=== PATIENT | female | born 1960 | race Two or more races ===

== ENCOUNTER 2024-07-04 09:39 | Outpatient (REF) | payer MEDICAID, SELFPAY ==
--- NOTE | ~2024-07-04 | XR_ITS ---
EXAMINATION: XR LUMBAR SPINE 5 VIEWS CLINICAL INFORMATION: Cervical disc disorder, unspecified, unspecified cervical region M50.90. COMPARISON: None TECHNIQUE: 5 Views of lumbar spine. FINDINGS: Vertebral body heights are maintained. No evidence of acute fracture. Vertebral body alignment is maintained in the lateral view There is minimal anterolisthesis of L5 on S1 on the flexion view. Mild-moderate disc degeneration at L3-4. Facet degeneration the lower lumbar spine. No abnormal soft tissue calcification. XR/XR lumbar spine 4V min IMPRESSION: Lumbar spondylosis. Study is assigned for dictation on August 20, 2024 Electronically signed by: Harley Steen MD 08/20/2024 03:09 PM EST RP
--- NOTE | ~2024-07-04 | XR_ITS ---
EXAMINATION: XR CERVICAL SPINE 7 VIEWS CLINICAL INFORMATION: Cervical disc disorder, unspecified, unspecified cervical region M50.90. COMPARISON: None available TECHNIQUE: 7 views of the cervical spine, inclusive of flexion and extension views, were obtained. FINDINGS: Status post posterior spinal fusion from C3 through C6. Intact hardware. No suspicious perihardware lucency is seen. No acute fracture is identified. There is degenerative changes at the atlantodens articulation. Lung apices are clear. XR/XR cervical spine 4V IMPRESSION: Status post C3-C6 posterior spinal fusion. Intact hardware. Study is assigned for dictation on August 20, 2024 Electronically signed by: Harley Steen MD 08/20/2024 03:15 PM JACQUE
== END 2024-07-04 09:40 | disposition home or self-care (01) ==
LOC: HO.HOSX 09:39
PROVIDERS: PCP Nurse Practitioner Family; Visit Provider Physician Assistant
DX: M50.90 Cervical disc disorder, unspecified, unspecified cervical region (principal)
CPT/HCPCS: 72050; 72110; 99212

== ENCOUNTER 2024-07-04 09:39 | Outpatient (AMB) | payer MEDICAID, SELFPAY ==
--- NOTE | 2024-07-04 10:12 | A.SPINEOV_ITS ---
Intake Visit Reasons: Back pain Intake Note: Ms. Arnel Golden is here today c/o low back pain difficulty walking. Material Control Manager Required: Yes Assessment & Plan Assessment & Plan (1) Cervical disc disorder: Code(s): M50.90 - Cervical disc disorder, unspecified, unspecified cervical region Category: Medical Plan Dear Pawan, Thank you for referring Mrs Holly Golden to our office today. This visit was done with the assistance of a video freelance interpreter/translator [id number]. She is a very nice 63-year-old Kyrgyz-speaking female who presents to the office today for evaluation of 2 separate issues. The 1st is back pain that she has had going on now for more than 10 years. It is aggravated with standing walking but also can bother her at night. She does get pain that goes down her legs, more on the right side when she is standing and walking. She does not recall if she has been taking any medication for it, she takes many medications and can not remember the names of many of them. She did try physical therapy about 5 months ago and they told her that it was not helping so was discontinued. She has seen someone at a pain management center somewhere, she could not recall the name of it but they did give her some kind of what sounds like trigger point injections in 3 parts of her spine. It was not done under x-rays so it does not sound like it was an epidural or anything deeper into the spinal column itself. The 2nd issue she wants to discuss his posterior neck pain. She had a large neck surgery done in [place] many years ago. She can not recall exactly why it was done but it was big neck surgery, it sounds like they fused her neck. Since then she has had issues with posterior neck pain as well as feeling like her hands do not work very well. No tingling numbness shooting down her arms. No severe radicular symptoms. PMH: She is prediabetic, high blood pressure, asthma, depression, arthritis, gastritis, neck surgery, knee surgery and hysterectomy. Denies any issues with her heart, lungs, liver, kidneys. She did have some blood in her urine awhile ago and that was followed up on an it went away apparently. Denies any history of bleeding disorders or blood clots. Social hx: She does not smoke, drink use any recreational drugs Medications: She could not remember her medications Allergies: None Physical exam: She is awake alert oriented no acute distress, Kyrgyz-speaking but understands some Setswana, we did this with it with the help of an freelance interpreter/translator. The patient has full strength of bilateral upper extremities and lower extremities. She does have some pain with hip flexion. She does have hyperreflexia in the upper extremities with Caicedo's sign. She has a large posterior cervical neck incision which extends the whole length of her cervical spine. Imaging review: There is a lumbar MRI and a cervical MRI done at [facility] in November of 2023. The lumbar MRI shows [id number] degenerative changes at L3-4 with some endplate edema at L3-4. There is no significant central or foraminal canal stenosis. There is some edema in the STIR sequence at the L3-4 level. The report suggests there is some issue with the T11 endplate possibly a Schmorl's node or subchondral fracture but I do not appreciate any STIR image hyperintensity on this to suggest that there is a fracture. There is no evidence of misalignment or facet arthropathy in the lumbar spine. The cervical spine shows a large posterior surgical changes from what appears to be C3-C5 with lateral mass screws. I do not see any evidence of cord signal change. There is a disc herniation at C7-T1 on the left which is causing narrowing of the foramen. Impression: 63-year-old female presents today for evaluation 2 separate issues. The 1st is back pain which seems to be at the forefront. She has some changes at L3-4 in the endplates with some edema but no evidence of nerve compression that would explain leg pain. The way she describes the pain in the back seems disproportionate to what I am seeing on the MRI. I would like to get standing flexion-extension x-rays to rule out any occult instability. She is involved with what sounds like a pain management team somewhere in [place]. She is going to get the name for me and I would like them to attempt an L3-4 epidural to see if we can localize this a little bit better and see if that is where the pain is coming from. She will call back and let me know when she has the name of that doctor and where they work. Second issue, is that she has neck pain and had a large posterior cervical decompression with lateral mass screws in [place] many years ago. I suspect she may have had spinal cord compression as she does have baseline hyperreflexia. She does also feel weakness in her hands although I can not detect much on my exam. I am going to get a set of x-rays of her neck as well and I will get an updated MRI just to rule out that nothing has changed since the last image that would cause her to have a myelopathic presentation. Once we have the x-rays the MRI and the name of the pain doctor, I will see the patient back in the office. I would also like her to get the L3- 4 epidural in the meantime as well to see if that would be helpful in making a surgical decision about that L3-4 disc. Once I have all this I will talk with Dr. Ojeda and see if he thinks she is a surgical candidate. Thank you for allowing us to care for your patient. The total time spent with this visit with this patient was 65 minutes reviewing history, physical exam, cervical and lumbar imaging review, and implementation of treatment plan or further diagnostic testing Robert Ojeda MD,PhD [facility] Orders: Orders XR lumbar spine 4V min Today M50.90 - Cervical disc disorder, unspecified, unspecified cervical region XR cervical spine 4V Today M50.90 - Cervical disc disorder, unspecified, unspecified cervical region MR cervical spine wo con Today M50.90 - Cervical disc disorder, unspecified, unspecified cervical region Coding Level of Care Code New Pt Level 5 (16116) Diagnoses Cervical disc disorder M50.90
== END 2024-07-04 11:02 | disposition home or self-care (01) ==
PROVIDERS: PCP Nurse Practitioner Family; Referring Provider Nurse Practitioner Family; Visit Provider Physician Assistant
DX: M50.90 Cervical disc disorder, unspecified, unspecified cervical region (principal)
CPT/HCPCS: 99205

== ENCOUNTER 2024-08-01 09:52 | Outpatient (AMB) | payer MEDICAID, SELFPAY ==
--- NOTE | 2024-08-01 10:35 | HO.SPINEOV ---
Intake Visit Reasons: MRI f/u Intake Note: Ms. Arnel Golden is here today to discuss the results of her MRI. Technician Plant And Maintenance Required: No Assessment & Plan Assessment & Plan (1) Cervical disc disorder: Code(s): M50.90 - Cervical disc disorder, unspecified, unspecified cervical region Category: Medical Plan Technician Plant And Maintenance [id number] used for this visit. Mrs Arnel Golden is following up to review her films. Please see my last note for the details specifics of her issues. I am seeing her today primarily for her cervical spine issues. She has had chronic neck pain ever since her surgery with numbness of her hands. She has also developed bilateral arm pain, left greater than right. It radiates down into her thumb and index finger. The arm pain has been something that she deals with on a daily basis and it does get progressively worse with activity. She has never had any injections on her neck to localize where the symptoms might be coming from. I examined her again in her left hand is slightly weaker than her right but not significantly so. She does have hyperreflexia on the left with Celeste sign and clonus in her left foot. Her cervical spine x-ray shows she has posterior lateral mass instrumentation from C3-C6 with what looks like a wide laminectomy there. She has significant adjacent segment disease at C6-7 with large anterior osteophytes. I do not see any signs of translation with flexion or extension views. The views are somewhat limited by her shoulders. I reviewed her new cervical MRI done at [facility] and this shows that she has herniated disc on the left at C7-T1. There is some impingement on the left side of the cord but no cord signal change. She also has bilateral foraminal narrowing at C6-7 as well. Based on all the imaging, she certainly has reasons to have neck pain and arm pain. I will review her MRI and x-rays with Dr. Ojeda to see what he thinks the best options for her would be. We did briefly discuss the fact that she has a fusion above these 2 degenerative discs and that generally this would require us to perform a fusion on these 2 discs as well which would essentially result in fusion of most of her cervical spine. I did admonished her that I did not expect her neck pain to improve given the amount of instrumentation she would have. I do think there is some room for improvement in the arm pain however if the nerves are decompressed. I will talk with Dr. Ojeda and see what he thinks the best approach here is, and call the patient back with the plan. Total amount of time spent in this visit was 20 minutes in discussion of symptoms, cervical MRI imaging results and subsequent plan of care Robert Ojeda MD,PhD [facility] Coding Level of Care Code Est Pt Level 3 (11679) Diagnoses Cervical disc disorder M50.90
== END 2024-08-01 11:02 | disposition home or self-care (01) ==
PROVIDERS: PCP Nurse Practitioner Family; Visit Provider Physician Assistant
DX: M50.90 Cervical disc disorder, unspecified, unspecified cervical region (principal)
CPT/HCPCS: 99213

== ENCOUNTER → 2024-08-01 09:52 | Outpatient (BNVA) | payer MEDICAID, SELFPAY | PROVIDERS: PCP Nurse Practitioner Family; Visit Provider Physician Assistant | DX: M50.923 Unspecified cervical disc disorder at C6-C7 level (principal); M50.23 Other cervical disc displacement, cervicothoracic region | CPT/HCPCS: 99212 ==

== ENCOUNTER 2024-08-22 14:28 | Outpatient (AMB) | payer MEDICAID, SELFPAY ==
--- NOTE | 2024-08-22 14:48 | HO.SPINEOV ---
Vital Signs 08/22/24 14:51 Height 5 ft 9 in Weight 238 lb BMI 35.1 Intake Visit Reasons: Discuss Surgery Intake Note: Ms. Seals is here today to Discuss Surgery Dental Hygiene Teacher Required: Yes Dental Hygiene Teacher Name: Tablet Allergies No Known Allergies Allergy (Verified 08/22/24 14:52) Physical Exam Vital Signs: BMI result Body Mass Index 35.1 Assessment & Plan Assessment & Plan (1) Cervical disc disorder: Code(s): M50.90 - Cervical disc disorder, unspecified, unspecified cervical region Category: Medical Plan Mrs Arnel Golden came back to the office today. I used ux designer number [id number] for this visit today. Her MRI was done at [facility], x-rays here [place]. Please refer to my previous notes for the specifics of her problem. We discussed 2 options for this patient, the 1st being continuing with conservative management, therapy, injections etc., the 2nd option being surgery, specifically anterior cervical fusion C6-7 and C7-T1. The patient was given risks, benefits etc. and she thinks she would like to proceed with surgery. We have tentatively set a date for 10/15/2024. I reinforced to her that I did not think her neck pain would improve significantly after surgery because this extension of her fusion down to the lower parts of her cervical spine would mean that most of her cervical spine would then be fused, and that she would expect chronic pain. The goal would really be to treat the left arm pain and hand weakness.. Pt was given risk and benefits of surgery including but not limited to infection, hematoma , nerve injury,durotomy, weakness,bowel/bladder injury, persistent pain, vocal hoarseness as well as the option to continue with conservative treatment and patient wishes to proceed with surgery. Pt is aware they should stop their diclofenac, and Ozempic 7 days prior to surgery. All questions were answered to the best of our ability. If there is anything about this patients medical history that we have overlooked or concerns you have about us proceeding with surgery we would appreciate any input you can offer. The patient did provide me with the medication list today and her current list of active medications includes lorazepam, Lasix, omeprazole, benztropine, diclofenac, fluoxetine, atorvastatin, Tylenol, cyclobenzaprine, mirtazapine, bupropion, gabapentin, loratadine, Caplyta, amlodipine, hydroxyzine, prazosin, Singulair, Linzess, Breo, Ventolin, Ozempic Total amount of time spent in this visit was 20 minutes in discussion of symptoms, cervical MRI imaging results and subsequent plan of care Robert Ojeda MD,PhD [facility] Coding Level of Care Code Est Pt Level 3 (83689) Diagnoses Cervical disc disorder M50.90
[2024-08-22 14:51] VITALS: BMI 35.1
== END 2024-08-22 15:27 | disposition home or self-care (01) ==
PROVIDERS: PCP Nurse Practitioner Family; Visit Provider Physician Assistant
DX: M50.90 Cervical disc disorder, unspecified, unspecified cervical region (principal)
CPT/HCPCS: 99213

== ENCOUNTER → 2024-08-22 14:28 | Outpatient (BNVA) | payer MEDICAID, SELFPAY | PROVIDERS: PCP Nurse Practitioner Family; Visit Provider Physician Assistant | DX: M50.90 Cervical disc disorder, unspecified, unspecified cervical region (principal) | CPT/HCPCS: 99212 ==

== ENCOUNTER 2024-10-15 06:30 | Day surgery (SDC) | payer MEDICAID, SELFPAY ==
--- NOTE | 2024-10-07 10:55 | P.CONAN_ITS ---
Documented by User: Alexsandra Elliott NP 10/14/24 10:21 HPI - Anesthesia Eval Consult details Narrative: 63yo F for C6-7, C7-T1 Anterior Cervical Discectomy with Fusion Anesthesia Pre-Procedure Meds Is the patient on any of the following meds?: GLP1/DPP4 PMFSH Active Problems Active Problems: All Active Problems Cervical disc disorder (Acute) Past Medical History Medical History (Updated 10/07/24 @ 10:32 by Marissa Weber RN) Back pain Arthritis Difficulty swallowing Prediabetes GERD (gastroesophageal reflux disease) Hyperkalemia Migraine Schizoaffective disorder, bipolar type Generalized anxiety disorder Depression Numbness Weakness Sleep apnea Asthma Elevated cholesterol HTN (hypertension) Surgical History Surgical History (Updated 10/07/24 @ 10:34 by Marissa Weber RN) Hx of shoulder surgery Hx of cervical spine surgery Hx of hysterectomy History of esophagogastroduodenoscopy (EGD) H/O colonoscopy Social History Social History Are you a primary skin care specialist to a significant other at home: No Do you presently have visiting nurse or other home services: 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 If so, by whom?: No Are you DNR?: No Advance Directives: No Advance Directives Information Provided: Yes Advance Directives on File: No Recently lost weight without trying: No Eating poorly because of decreased appetite: No Nutrition Risks: No Nutritional Risk Patient : No : No Poor oral hygiene: Yes (full upper denture) Meds Allergies Allergy/AdvReac Type Severity Reaction Status Date / Time No Known Allergies Allergy Verified 08/22/24 14:52 Home Medications ?Medication ?Instructions ?Recorded ?Confirmed ?Last Taken ?Type acetaminophen 500 mg tablet 500 mg PO Q6H PRN Pain 10/07/24 10/07/24 10/14/24 History albuterol sulfate 90 mcg/actuation 2 puff inhalation QID PRN 10/07/24 10/07/24 10/14/24 History aerosol inhaler (Ventolin HFA) Shortness Of Breath Or Wheezing aluminum-mag hydroxide-simethicone 15 ml PO TID PRN Abdominal 10/07/24 10/07/24 10/14/24 History 200 mg-200 mg-20 mg/5 mL oral susp Discomfort amlodipine 5 mg tablet 5 mg PO DAILY 10/07/24 10/07/24 10/14/24 History atorvastatin 40 mg tablet 40 mg PO DAILY 10/07/24 10/07/24 10/14/24 History benztropine 0.5 mg tablet 0.5 mg PO BID 10/07/24 10/07/24 10/14/24 History bupropion HCl 300 mg 24 hr tablet, 300 mg PO QAM 10/07/24 10/07/24 10/14/24 History extended release (Wellbutrin XL) cyclobenzaprine 5 mg tablet 5 mg PO TID PRN muscle spasm 10/07/24 10/07/2410/14 History diclofenac sodium 1 % topical gel 2 g topical TID 10/07/24 10/07/24 10/02/24 History diclofenac sodium 75 mg 75 mg PO BID 10/07/24 10/07/24 10/02/24 History tablet,delayed release fluoxetine 40 mg capsule 80 mg PO QAM 10/07/24 10/07/24 10/14/24 History fluticasone furoate 200 1 inh inhalation DAILY 10/07/24 10/07/24 10/14/24 History mcg-vilanterol 25 mcg/dose inhalation powder (Breo Ellipta) furosemide 20 mg tablet 20 mg PO DAILY 10/07/24 10/07/24 10/14/24 History gabapentin 300 mg capsule 600 mg PO TID 10/07/24 10/07/24 10/14/24 History hydroxyzine pamoate 50 mg capsule 50 mg PO TID PRN Anxiety 10/07/24 10/07/24 10/14/24 History lidocaine 4 % topical gel 1 appl topical BID 10/07/24 10/07/24 10/02/24 History linaclotide 145 mcg capsule 145 mcg PO DAILY 10/07/24 10/07/24 10/13/24 History (Linzess) loratadine 10 mg tablet 10 mg PO DAILY allergies 10/07/24 10/07/24 10/14/24 History lorazepam 0.5 mg tablet (Ativan) 0.5 mg PO BID PRN Anxiety 10/07/24 10/07/24 10/14/24 History lumateperone 42 mg capsule 42 mg PO BEDTIME 10/07/24 10/07/24 10/14/24 History (Caplyta) mirtazapine 15 mg tablet 45 mg PO BEDTIME 10/07/24 10/07/24 10/14/24 History montelukast 10 mg tablet 10 mg PO BEDTIME asthma 10/07/24 10/07/24 10/14/24 History omeprazole 40 mg capsule,delayed 40 mg PO DAILY 10/07/24 10/07/24 10/14/24 History release prazosin 1 mg capsule 1 mg PO BEDTIME 10/07/24 10/07/24 10/14/24 History semaglutide 1 mg/dose (4 mg/3 mL) 1 mg subcut QWEEK 10/07/24 10/07/24 10/01/24 History subcutaneous pen injector (Ozempic) ziprasidone HCl 40 mg capsule 40 mg PO BID 10/07/24 10/07/24 10/14/24 History (Snow) Exam Pertinent Lab Results Pertinent Lab Results: Lab results : Results? 05/07/2024 14:41 EDT ? ? ?WBC ? 9.8 k/mm3 ? RBC ? 4.75 m/mm3 ? Hgb ? 13.5 Gm/dL ? Hct ? 41.7 % ? MCV ? 87.8 femtoliters ? MCH ? 28.4 pg ?MCHC ?32.4 g/dL ?L? Platelet Count ?261 k/mm3 ? Sodium ?141 mmol/L ? Potassium ? 4.3 mmol/L ? Chloride ?104 mmol/L ? Bicarbonate Level ? 25 mmol/L ? Anion Gap ? 12 ? Glucose Level ? 94 mg/dL ? BUN ? 11 mg/dL ? Creatinine-Blood ?0.84 mg/dL ? TSH ? 1.62 uIU/mL ? Narrative Narrative: EKG 04/2024 [id number] Ventricular Rate: 59 BPM Atrial Rate: 59 BPM P-R Interval: 180 ms QRS Duration: 96 ms Q-T Interval: 462 ms QTC Calculation(Bazett): 457 ms P Madison: 39 degrees R Madison: 44 degrees T Madison: 37 degrees Sinus bradycardia Otherwise normal ECG When compared with ECG of 23-NOV-2023 12:46, No significant change was found Confirmed by Carlos Lehman ([id number]) on 05/08/2024 7:13:18 AM Assessment and Plan Assessment Anesthesia Assessment: Chart Reviewed Documented by User: Ritu Jha MD 10/15/24 08:11 [facility] Past Medical History Medical History (Updated 10/07/24 @ 10:32 by Marissa Weber RN) Back pain Arthritis Difficulty swallowing Prediabetes GERD (gastroesophageal reflux disease) Hyperkalemia Migraine Schizoaffective disorder, bipolar type Generalized anxiety disorder Depression Numbness Weakness Sleep apnea Asthma Elevated cholesterol HTN (hypertension) Family History Family history of problems with anesthesia: No Surgical History Surgical History (Updated 10/07/24 @ 10:34 by Marissa Weber RN) Hx of shoulder surgery Hx of cervical spine surgery Hx of hysterectomy History of esophagogastroduodenoscopy (EGD) H/O colonoscopy History of Problems with Anesthesia: No Social History Social History Are you a primary skin care specialist to a significant other at home: No Do you presently have visiting nurse or other home services: 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 If so, by whom?: No Are you DNR?: No Advance Directives: No Advance Directives Information Provided: Yes Advance Directives on File: No Recently lost weight without trying: No Eating poorly because of decreased appetite: No Nutrition Risks: No Nutritional Risk Patient : No : No Poor oral hygiene: Yes (full upper denture) Meds Allergies Allergy/AdvReac Type Severity Reaction Status Date / Time No Known Allergies Allergy Verified 08/22/24 14:52 Home Medications ?Medication ?Instructions ?Recorded ?Confirmed ?Last Taken ?Type acetaminophen 500 mg tablet 500 mg PO Q6H PRN Pain 10/07/24 10/07/24 10/14/24 History albuterol sulfate 90 mcg/actuation 2 puff inhalation QID PRN 10/07/24 10/07/24 10/14/24 History aerosol inhaler (Ventolin HFA) Shortness Of Breath Or Wheezing aluminum-mag hydroxide-simethicone 15 ml PO TID PRN Abdominal 10/07/24 10/07/24 10/14/24 History 200 mg-200 mg-20 mg/5 mL oral susp Discomfort amlodipine 5 mg tablet 5 mg PO DAILY 10/07/24 10/07/24 10/14/24 History atorvastatin 40 mg tablet 40 mg PO DAILY 10/07/24 10/07/24 10/14/24 History benztropine 0.5 mg tablet 0.5 mg PO BID 10/07/24 10/07/24 10/14/24 History bupropion HCl 300 mg 24 hr tablet, 300 mg PO QAM 10/07/24 10/07/24 10/14/24 History extended release (Wellbutrin XL) cyclobenzaprine 5 mg tablet 5 mg PO TID PRN muscle spasm 10/07/24 10/07/24 10/14/24 History diclofenac sodium 1 % topical gel 2 g topical TID 10/07/24 10/07/24 10/02/24 History diclofenac sodium 75 mg 75 mg PO BID 10/07/24 10/07/24 10/02/24 History tablet,delayed release fluoxetine 40 mg capsule 80 mg PO QAM 10/07/24 10/07/24 10/14/24 History fluticasone furoate 200 1 inh inhalation DAILY 10/07/24 10/07/24 10/14/24 History mcg-vilanterol 25 mcg/dose inhalation powder (Breo Ellipta) furosemide 20 mg tablet 20 mg PO DAILY 10/07/24 10/07/24 10/14/24 History gabapentin 300 mg capsule 600 mg PO TID 10/07/24 10/07/24 10/14/24 History hydroxyzine pamoate 50 mg capsule 50 mg PO TID PRN Anxiety 10/07/24 10/07/24 10/14/24 History lidocaine 4 % topical gel 1 appl topical BID 10/07/24 10/07/24 10/02/24 History linaclotide 145 mcg capsule 145 mcg PO DAILY 10/07/24 10/07/24 10/13/24 History (Linzess) loratadine 10 mg tablet 10 mg PO DAILY allergies 10/07/24 10/07/24 10/14/24 History lorazepam 0.5 mg tablet (Ativan) 0.5 mg PO BID PRN Anxiety 10/07/24 10/07/24 10/14/24 History lumateperone 42 mg capsule 42 mg PO BEDTIME 10/07/24 10/07/24 10/14/24 History (Caplyta) mirtazapine 15 mg tablet 45 mg PO BEDTIME 10/07/24 10/07/24 10/14/24 History montelukast 10 mg tablet 10 mg PO BEDTIME asthma 10/07/24 10/07/24 10/14/24 History omeprazole 40 mg capsule,delayed 40 mg PO DAILY 10/07/24 10/07/24 10/14/24 History release prazosin 1 mg capsule 1 mg PO BEDTIME 10/07/24 10/07/24 10/14/24 History semaglutide 1 mg/dose (4 mg/3 mL) 1 mg subcut QWEEK 10/07/24 10/07/24 10/01/24 History subcutaneous pen injector (Ozempic) ziprasidone HCl 40 mg capsule 40 mg PO BID 10/07/24 10/07/24 10/14/24 History (Snow) Exam Airway Mallampati Class: II TM Dist: >3cm Neck ROM: Full Denture: Upper Heart: rrr Lungs: cta Assessment and Plan Assessment Anesthesia Assessment: Anesthesia Plan Discussed Final Anesthetic Review Family History of Problems with Anesthesia: No History of Problems with Anesthesia: No NPO: Yes ASA Class: III Final Preanesthetic Review: No Changes in Pt Med Stat, Meds/Allgs Chart Reviewed and Consent Obtained/Reviewed Patient Risk: Intermediate Procedure Risk: Intermediate Anesthetic Plan Anesthetic Plan: GA Disposition: Standard PACU
[2024-10-07 11:04] VITALS: BMI 32.9
[2024-10-07 11:10] VITALS: BP 133/71; PULSE 67; RESP 18; O2SAT 95
[2024-10-15] VITALS (8 sets, daily range): BP systolic 110–142; BP diastolic 65–76; PULSE 64–71; RESP 16–18; TEMP 36.4–36.9; O2SAT 95–100; BMI 32.6
--- NOTE | ~2024-10-15 | FL_ITS ---
EXAMINATION: FL GUIDANCE ONLY HISTORY: c6-t1 ACDF COMPARISON: Correlation is made with plain films of the cervical spine dated 07/04/2024. TECHNIQUE: Fluoroscopy time: 5 seconds. Cumulative Dose: 1.4384 mGy. DAP: 0.4478 mGym2 Images: 2. FINDINGS: Images demonstrate placement of disc prostheses at the C6-7 and C7-T1 levels. The patient is status post posterior fusion of C3-C6. FL/FL guidance in OR IMPRESSION: Fluoroscopy during procedure. Please see procedure report for additional information. Electronically signed by: Francesco Edge MD 10/16/2024 08:57 AM [facility]
--- NOTE | 2024-10-15 07:05 | MHC.SHP ---
Pre-Procedural Eval Section A - 24 Hr Update-Section A only Date of Service: 10/15/24 Section B - Complete if H&P > 30 days Chief Complaint: Cervical disc disorder, unspecified Allergies: Allergies Allergy/AdvReac Type Severity Reaction Status Date / Time No Known Allergies Allergy Verified 08/22/24 14:52 Review of Systems Sugical H&P ROS: Negative: Constitution, Cardiovascular, Respiratory, Neurological, Psychiatric, Hem-Onc, Allergic/Immunologic, Gastrointestinal, Genitourinary, Musculoskeletal, Integumentary, Endocrine and Eyes/Ears/Nose/Throat Exam Surgical H&P Exam: Not Evaluated: HEENT, Not Evaluated: Heart, Not Evaluated: Lungs, Not Evaluated: Extremities, Not Evaluated: Abdomen, Not Evaluated: Skin and Not Evaluated: Neurological Exam Comment: The patient is awake, alert, in no acute distress. Proposed surgical incision site is clean, dry, with no signs of recent trauma. Plan Diagnosis/Plan: Unchanged I have reviewed the history and physical and performed a pertinent physical examination on my patient. No changes have occurred unless specified. plan remains the same, C6-7, C7-T1 ACDF. Time Spent With Patient Time: Total time managing care of this patient today __7__ minutes.
[2024-10-15] MEDS: methocarbamoL 750 MG TABLET PO (07:06)
[2024-10-15] MEDS: Lactated Ringers 1,000 ML 100 ML IVCONT (07:06)
[2024-10-15] MEDS: Gabapentin 300 MG CAPSULE PO (07:06)
--- NOTE | 2024-10-15 08:51 | PC.NURSE ---
pt received one liter of fluids in preop voided x1
[2024-10-15] MEDS: ceFAZolin Sodium/Dextrose,Iso 2 GM/50 ML PIGGYBACK IV (10:30)
--- NOTE | 2024-10-15 12:12 | P.OP_ITS ---
Operative Note Operative Note Date of Service: 10/15/24 Narrative: Preoperative Diagnosis: Myeloradiculopathy Procedure: C6-7, C7-T1 Anterior discectomy, arthrodesis and implantation cage ; C6-T1 anterior instrumentation ; local autograft; microscope Informed Consent was obtained for this operation. I have explained the nature, purpose and benefits of the operation. I have discussed the risks and benefit of the operation including possible complications or adverse events with patie nt/family. Alternative(s) were discussed with the patient with their relative benefits and risks as well as the consequences of not accepting the operation were included in obtaining consent. Surgeon: JERRY SANTO MD, PHD Procedure Assisted By: CYNDI Lam Description of Procedure: This patient underwent a posterior decompression and fusion C3-C6 and another institution. She presented with neck pain and bilateral hand numbness. MRI shows a disc herniation C7-T1 producing significant spinal cord compression. She was offered an anterior diskectomy and fusion was level. Due to the fact that the patient is already fused from C3-C6 and now needs a fusion from C7-T1 we can not leave the C6-7 disc alone as this will fail and produce symptoms. Therefore the C6-7 level is added to the fusion. The procedure complications were explained. The patient was consented. The patient was brought to the operating room and endotracheally intubated. The patient was put in supine position with slight extension of the neck. Prep and drape was done followed by timeout. A mid cervical incision was made followed by opening of the platysma. The prevertebral fascia was reached following the natural planes while the physician registered dental assistant provided manual retraction. The prevertebral fascia was opened to expose the disc space. A spinal needle was placed in the disk space to confirm the correct level with xray. The longus colli muscles were released bilaterally and a self retaining retractor was inserted. Two [place] pins were placed in the C7 and T1 vertebral bodies and distraction was give over the interspace. The discectomy was completed toward the posterior annulus of the disc. The microscope was brought in. The remainder of the discectomy was completed. The posterior ligament was opened and resected to expose the underlying dura. A large disc fragment was removed from the dura centrally on the left side. Osteophytes were resected from the body of C7 and T1 to further decompress the underlying spinal cord and saved for autograft. Bilateral foraminotomies were done. The endplates were prepared after which a 6 mm cage filled with autograft was inserted into the disc space. A separate attached plate was locked down with 2 x 14 mm screws as anterior instrumentation. Then attention was turned to the C6-7 level. Severe disc degeneration was present. A diskectomy was done towards the posterior longitudinal ligament. The posterior longitudinal ligament was opened after which large osteophytes were resected from the body of C6-7 to decompress the underlying spinal cord. Bilateral foraminotomies were done. The endplates were prepared after which a 6 mm cage was inserted filled with autograft. Separate attached plate was locked down with 2 x 14 mm screws as anterior instrumentation. Final x-rays in AP and lateral projection showed a satisfactory position of the implant implants and anterior instrumentation. The physician registered dental assistant took over. The [place] pin was removed. Hemostasis was done. He closed the incision in 2 layers with a 3-0 Vicryl. Steri-Strips used to approximate incision. An OpSite with Tegaderm was used to cover the incision. All sponge and needle counts were correct. Patient was extubated and transported in stable is to recovery room. Anesthesia: General Estimated Blood Loss (ml): 30 mL Duration of Surgery: 1 hour 30 minutes Postoperative Plan: Discharge home Complications: None
--- NOTE | 2024-10-15 12:18 | P.DS_ITS ---
DS: Providers Provider Date of Service: 10/15/24 Date of discharge: 10/15/24 Primary care physician: Unknown Physician DS: Summary Time Attestation Discharge Coordination Time (in mins): 14 Quality: Safe Use of Opioids Does Pt have an Active Cancer Diagnosis on the Problem List?: No Quality: Stroke Does the patient have a stroke diagnosis?: No Physical Exam Vital Signs: Vital Signs: Last Vital Signs Temp 98.5 F 10/15/24 07:29 Pulse 68 10/15/24 07:29 Resp 18 10/15/24 07:29 BP 115/76 10/15/24 07:29 Pulse Ox 96 10/15/24 07:29 O2 Del Method Room Air 10/15/24 07:29 BMI result Body Mass Index 32.6 Discharge Plan Discharge Patient Disposition: Home, Self-Care Referrals: Physician,Unknown J [Primary Care Provider] - 1 Week Discharge Medications: New oxycodone 5 mg tablet 5 mg PO Q6H PRN (Reason: pain (scale score 7-10)) Qty: 30 0RF Rx Instructions: Partial Fill upon patient request. Continued fluoxetine 40 mg capsule 80 mg PO QAM atorvastatin 40 mg tablet 40 mg PO DAILY benztropine 0.5 mg tablet 0.5 mg PO BID prazosin 1 mg capsule 1 mg PO BEDTIME hydroxyzine pamoate 50 mg capsule 50 mg PO TID PRN (Reason: Anxiety) amlodipine 5 mg tablet 5 mg PO DAILY omeprazole 40 mg capsule,delayed release(DR/EC) 40 mg PO DAILY lorazepam [Ativan] 0.5 mg tablet 0.5 mg PO BID PRN (Reason: Anxiety) gabapentin 300 mg capsule 600 mg PO TID montelukast 10 mg tablet 10 mg PO BEDTIME furosemide 20 mg tablet 20 mg PO DAILY mirtazapine 15 mg tablet 45 mg PO BEDTIME loratadine 10 mg tablet 10 mg PO DAILY cyclobenzaprine 5 mg tablet 5 mg PO TID PRN (Reason: muscle spasm) bupropion HCl [Wellbutrin XL] 300 mg tablet extended release 24 hr 300 mg PO QAM diclofenac sodium 1 % Gel 2 g TOPICAL TID Rx Instructions: apply to single elbow, wrist or hand; for hand includes palm/fingers/back of hand Linzess 145 mcg capsule 145 mcg PO DAILY Caplyta 42 mg capsule 42 mg PO BEDTIME acetaminophen 500 mg tablet 500 mg PO Q6H PRN (Reason: Pain) albuterol sulfate [Ventolin HFA] 90 mcg/actuation HFA aerosol inhaler 2 puff inhalation QID PRN (Reason: Shortness Of Breath Or Wheezing) alum-mag hydroxide-simeth 200-200-20 mg/5 mL Suspension 15 ml PO TID PRN (Reason: Abdominal Discomfort) Rx Instructions: administer between meals and at bedtime diclofenac sodium 75 mg Tablet,Delayed Release (Dr/Ec) 75 mg PO BID ziprasidone HCl [Geodon] 40 mg capsule 40 mg PO BID lidocaine 4 % Gel 1 appl TOPICAL BID fluticasone furoate-vilanterol [Breo Ellipta] 200-25 mcg/dose Blister With Device 1 inh INHALATION DAILY Ozempic 1 mg/dose (4 mg/3 mL) pen injector 1 mg subcut QWEEK Patient Comments: patient takes injection every Discharge Orders: Discharge Order (Routine); Ordered 10/15/24 Ordered By: Akira Quispe Diet: Advance to usual diet Activity on Discharge: As tolerated Activity Restrictions/Additional Instructions: After your spinal surgery we ask you to observe the following restrictions/guidelines: Activity: It is normal to feel some discomfort as you increase your activity, but that will improve with time. We ask you avoid heavy lifting or acitivities that cause pain. As a general rule, 8lbs is a safe limit for lifting right after surgery. Walk as much as you feel comfortable but not to exhaustion. You will feel extra tired the first few days after surgery. Stay well hydrated. It is OK to walk up and down stairs You may return to driving when you are off narcotics (such as vicodin, oxycodone, dilaudid, etc), and you are back to normal functional capacity. If you have any concerns please check with office before driving. Return to work is specific to each patient and each surgery, so please speak with your doctor/PA at first follow up. Please bring paperwork such as FMLA at that time if you need it filled out. Medications: We recommend you take 1,000mg Tylenol every 8 hours for the first few weeks after surgery, if you do not have any liver issues and can tolerate this medication. Do not exceed 4,000mg daily. We will give you a short supply of narcotics after surgery (usually one weeks worth). If you need more please call the office but do not use more than prescribed. You will need to give our office 48 hours notice if you need narcotics refilled and we do not fill narcotics on weekends or evenings. If you are on a narcotic, it is a good idea to take a stool softener such as colace or senna to avoid constipation If you take blood thinner such as aspirin, Plavix, Coumadin, Effient, Eliquis etc for conditions such as Afib, DVT, Pulmonary embolus, coronary disease, stents etc please speak with your surgeon about specific details as to when you can resume these medications. You can resume NSAIDs on post op day 1 (eg: Motrin, Naproxen, etc). Follow up: Please call the office, , after surgery to arrange a 3 week follow up for wound check. Wound Care: You may remove your dressing on the first day after surgery. ?You may ?leave open to air. Please do not remove the steri strips underneath. they will fall off on their own in one week. IT IS NORMAL FOR THE WOUND TO OOZE OR BE BLOODY FOR A FEW DAYS AFTER SURGERY. ?IF THIS HAPPENS JUST PLACE NEW DRESSING OVER IT TO AVOID STAINING CLOTHES. You may shower on post op day # 1 We ask that you do not let the water soak the wound. If it does get wet, just towel dry lightly. Please do not scrub your incision or place any type of chemical/ointment on the wound. No tub baths, pools or jacuzzis for one month. If you have any leaking or redness from your wound, or fevers, please call the office. Print Language: [place]
--- NOTE | 2024-10-15 14:15 | PC.NURSE ---
PATIENT SSO, DIRECTOR REHABILITATION PROGRAM AT SIDE. PATIENT REPORTING CHEST PAIN (BURNING) IN MID STERNAL AREA. ANESTHESIOLOGIST ASSESSED AND STATED PAIN RADIATING FROM INSERTION SITE. THIS RN ALSO SENT AT NOTE TO DR. VANEGAS.
--- NOTE | 2024-10-15 14:38 | PC.NURSE ---
THIS RN CALLED 'S OFFICE AND EXPLAINED THE BURNING CHEST PAIN. DR. SANTO STATED A SCREW TO THE BONE AREA COULD BE CAUSING THAT PAIN AND THAT SHE WAS OKAY TO GO HOME. PEST LOCATOR RECALLED TO EXPLAIN TO PATIENT.
== END 2024-10-15 14:47 | disposition home or self-care (01) ==
PROVIDERS: Visit Provider Neurological Surgery
PROC: (CPT 22551; principal; 2024-10-15 09:00)
DX: M50.023 Cervical disc disorder at C6-C7 level with myelopathy (principal); M50.03 Cervical disc disorder with myelopathy, cervicothoracic region; R73.03 Prediabetes; I10 Essential (primary) hypertension; E78.00 Pure hypercholesterolemia, unspecified; J45.909 Unspecified asthma, uncomplicated; F25.0 Schizoaffective disorder, bipolar type; F41.1 Generalized anxiety disorder; G47.33 Obstructive sleep apnea (adult) (pediatric); Z79.51 Long term (current) use of inhaled steroids; Z79.899 Other long term (current) drug therapy; Z79.85 Long-term (current) use of injectable non-insulin antidiabetic drugs; Z99.89 Dependence on other enabling machines and devices
CPT/HCPCS: 22551; 22552; 22853; 20936; 22845; C1713; C1889; J0131; J0690; J1100; J2003; J2250; J2405; J2704; J3010

== ENCOUNTER → 2024-10-15 06:30 | Outpatient (BNV) | payer MEDICAID, SELFPAY | PROVIDERS: Visit Provider Neurological Surgery | DX: M50.023 Cervical disc disorder at C6-C7 level with myelopathy (principal) | CPT/HCPCS: 20936; 22551; 22552; 22845; 22853; 99499 ==

== ENCOUNTER 2024-10-31 22:28 | Emergency (ER) | payer MEDICAID, SELFPAY ==
--- NOTE | ~2024-10-31 | XR_ITS ---
CLINICAL HISTORY: CP 1 view chest x-ray Comparison: None Findings: Lungs are clear without acute infiltrates. No pneumothorax. Heart size normal. No acute bony abnormalities. Cervical fusion or ADR. Impression: No acute processes This document has been electronically signed by: Mike Gaitan MD on 10/31/2024 23:37:16
[2024-10-31 22:30] VITALS: BP 113/77; PULSE 62; O2SAT 97; BMI 32.5
[2024-10-31 22:31] VITALS: BP 124/64; PULSE 65; RESP 18; TEMP 36.8; O2SAT 97
--- NOTE | 2024-10-31 22:40 | ED.GENADULT ---
HPI - General Adult General Chief complaint: Back Pain/Injury Stated complaint: neurosurgeon consult expect /neck pain Source: patient and EMS Mode of arrival: EMS Limitations: no limitations and other History of Present Illness ED Provider: Dr. Aicha Suh HPI narrative: Patient comes to the emergency room via ambulance from [facility]. Our previous ED provider accepts the transfer. Patient presented to the ER at [facility] complaining of ongoing postoperative neck, shoulder, and upper extremity pain. Patient states that on October 15 she had a neurosurgical intervention done at [facility] with Dr. Ojeda. Patient has no neurological deficits. An MRI was done at [facility], which demonstrated new soft tissue material in the intervertebral space it a C6-C7 and C7-T1 extending into the ventral epidural space and along the posterior aspect of the C7 vertebral body which could represent evolving hematoma. However, disc bulges with extruded disc material along the posterior margin of C7 could have similar appearance. There is severe cranial stenosis at C6-C7, posterior to the C7 vertebral body and moderate to severe canal stenosis at C7-T1. The provider at [facility] got in touch with the attending neurosurgeon Dr. Ball, who discussed the patient with Dr. Lorenzana from [facility]. They both decided that it would be best to transfer the patient to [facility]. Related Data Home Medications ?Medication ?Instructions ?Recorded ?Confirmed acetaminophen 500 mg tablet 500 mg PO Q6H PRN Pain 10/07/24 10/07/24 albuterol sulfate 90 mcg/actuation 2 puff inhalation QID PRN 10/07/24 10/07/24 aerosol inhaler (Ventolin HFA) Shortness Of Breath Or Wheezing aluminum-mag hydroxide-simethicone 15 ml PO TID PRN Abdominal 10/07/24 10/07/24 200 mg-200 mg-20 mg/5 mL oral susp Discomfort amlodipine 5 mg tablet 5 mg PO DAILY 10/07/24 10/07/24 atorvastatin 40 mg tablet 40 mg PO DAILY 10/07/24 10/07/24 benztropine 0.5 mg tablet 0.5 mg PO BID 10/07/24 10/07/24 bupropion HCl 300 mg 24 hr tablet, 300 mg PO QAM 10/07/24 10/07/24 extended release (Wellbutrin XL) cyclobenzaprine 5 mg tablet 5 mg PO TID PRN muscle spasm 10/07/24 10/07/24 diclofenac sodium 1 % topical gel 2 g topical TID 10/07/24 10/07/24 diclofenac sodium 75 mg 75 mg PO BID 10/07/24 10/07/24 tablet,delayed release fluoxetine 40 mg capsule 80 mg PO QAM 10/07/24 10/07/24 fluticasone furoate 200 1 inh inhalation DAILY 10/07/24 10/07/24 mcg-vilanterol 25 mcg/dose inhalation powder (Breo Ellipta) furosemide 20 mg tablet 20 mg PO DAILY 10/07/24 10/07/24 gabapentin 300 mg capsule 600 mg PO TID 10/07/24 10/07/24 hydroxyzine pamoate 50 mg capsule 50 mg PO TID PRN Anxiety 10/07/24 10/07/24 lidocaine 4 % topical gel 1 appl topical BID 10/07/24 10/07/24 linaclotide 145 mcg capsule 145 mcg PO DAILY 10/07/24 10/07/24 (Linzess) loratadine 10 mg tablet 10 mg PO DAILY allergies 10/07/24 10/07/24 lorazepam 0.5 mg tablet (Ativan) 0.5 mg PO BID PRN Anxiety 10/07/24 10/07/24 lumateperone 42 mg capsule 42 mg PO BEDTIME 10/07/24 10/07/24 (Caplyta) mirtazapine 15 mg tablet 45 mg PO BEDTIME 10/07/24 10/07/24 montelukast 10 mg tablet 10 mg PO BEDTIME asthma 10/07/24 10/07/24 omeprazole 40 mg capsule,delayed 40 mg PO DAILY 10/07/24 10/07/24 release prazosin 1 mg capsule 1 mg PO BEDTIME 10/07/24 10/07/24 semaglutide 1 mg/dose (4 mg/3 mL) 1 mg subcut QWEEK 10/07/24 10/07/24 subcutaneous pen injector (Ozempic) ziprasidone HCl 40 mg capsule 40 mg PO BID 10/07/24 10/07/24 (Geodon) Previous Rx's ?Medication ?Instructions ?Recorded oxycodone 5 mg tablet 5 mg PO Q6H PRN pain (scale score 10/15/24 7-10) #30 tabs Allergies Allergy/AdvReac Type Severity Reaction Status Date / Time No Known Allergies Allergy Verified 10/31/24 22:42 Review of Systems Review of Systems: Constitutional : No Weight loss, No Fever, No Chills, No Night Sweats, No Fatigue, No Malaise ENT/Mouth : No Hearing loss, No Ear Pain, No Nasal Congestion, No Sinus Pain, No Hoarseness, No sore throat, No Rhinorrhea, No Swallowing Difficulty Eyes: No Eye Pain, No Swelling, No Redness, No Foreign Body, No Discharge, No Vision Changes Cardiovascular : No Chest Pain, No SOB, No Dyspnea on Exertion, No Orthopnea, No Edema, No Palpitations Respiratory : No Cough, No Sputum, No Wheezing, No Smoke Exposure, No Dyspnea Gastrointestinal : No Nausea, No Vomiting, No Diarrhea, No Constipation, No abdominal Pain, No Hematochezia, No Melena Genitourinary : no irregular bleeding, No Dysuria, No Urinary Frequency, No Hematuria, No Urinary Incontinence, No Urgency, No Flank Pain, No Urinary Flow Changes, No Hesitancy Musculoskeletal : Complaining of posterior back pain, shoulder pain bilateral, upper extremity pain. Skin : No Skin Lesions, No rash Neuro : No Weakness, No Numbness, No Paresthesias, No Loss of Consciousness, No Dizziness, No Headache Psych : No Anxiety/Panic, No Depression, No SI/HI/AH/VH, No Social Issues, Heme/Lymph: No Bruising, No Bleeding,No Lymphadenopathy Endocrine : No Polyuria, No Polydipsia, No Temperature Intolerance PMFSH Past Medical History Medical History Back pain Arthritis Difficulty swallowing Prediabetes GERD (gastroesophageal reflux disease) Hyperkalemia Migraine Schizoaffective disorder, bipolar type Generalized anxiety disorder Depression Numbness Weakness Sleep apnea Asthma Elevated cholesterol HTN (hypertension) Surgical History (Updated 10/07/24 @ 10:34 by Marissa Weber RN) Hx of shoulder surgery Hx of cervical spine surgery Hx of hysterectomy History of esophagogastroduodenoscopy (EGD) H/O colonoscopy Social History Social History Are you a primary home care specialist to a significant other at home: No Do you presently have visiting nurse or other home services: Yes ([employer] OFFICE [employer]IST[employer]) Patient Tobacco Use Status: Never used Tobacco Smoked in Last 30 Days: No Use of substances other than those prescribed or required for medical reasons: No Advance Directives: No Advance Directives Information Provided: Yes Do you have a plan to hurt others: No Plan Patient : No Physical Exam ED Vital Signs: Vital Signs - 24 hr 10/31/24 22:31 Temperature 98.3 F Pulse Rate 65 Respiratory Rate 18 Blood Pressure 124/64 Pulse Oximetry 97 Oxygen Delivery Method Room Air BMI result Body Mass Index 32.5 Const Other: Appearance: Alert. Oriented X3. Seems uncomfortable Eyes: Pupils equal, round and reactive to light. ENT: Pharynx normal. Neck: Normal inspection. Neck supple. No lymph nodes noted. No crepitus CVS: Normal heart rate and rhythm. Pulses normal. Normal S1 and S2 Respiratory: No respiratory distress. Breath sounds normal. No Wheezing. No rales Abdomen: Soft and nontender. No rigidity. No distention. Skin: Skin warm and dry. Normal skin color. Normal skin turgor. Extremities: No lower extremity edema. No Lacerations. No Rash Neuro: Oriented X 3. No motor deficit. No sensory deficit. Moving all extremities. No slurred speech. CN 2 through 12 grossly intact Psych: calm, cooperative, normal affect Course Course Course Narrative: Patient arrived here in the emergency room, we got in touch with CYNDI Quispe from Neurosurgery. They will come and evaluate the patient in the morning, admission not necessary at this time. Patient states that for several days, she has been having chest pain. We do not have any current labs available. We will do our on labs, get troponins, EKG. In the meantime, neurosurgery recommends IV dexamethasone 4 mg q.6 hours. First dose ordered 23:00 Medications Administered Generic Name Dose Route Start Last Admin Trade Name Freq PRN Reason Stop Dose Admin Dexamethasone Sodium Phosphate 4 mg 10/31/24 23:00 10/31/24 23:35 Dexamethasone Sod Phosphate 4 Mg/Ml Vial IVPUSH 4 mg Q6H THEODORE Administration Medical Decision Making Medical Decision Making [facility] Narrative: My interpretation of EKG: Normal sinus rhythm, heart rate 57, no ST segment depression or elevation, no T-wave inversion, QTC 453 Hematology and chemistry did not show any significant acute abnormality. Troponin negative Chest x-ray: No acute abnormality Patient is under physician observation started at 00:20 Neurosurgery evaluation pending at 08:00 Consult Healthcare Provider Management of the patient was discussed with: [employer] Lab Data [facility] Lab Attestation statement: I reviewed the patient's lab results. 10/31/24 22:59 10/31/24 23:00 Labs: Lab Results 10/31/24 10/31/24 Range/Units 22:59 23:00 WBC 7.3 (4.8-10.8) X10*3/uL RBC 4.51 (4.20-5.50) X10*6/uL Hgb 13.0 (12.0-16.0) g/dl Hct 39.5 (37.0-47.0) % MCV 87.6 (80.0-98.0) fL MCH 28.8 (27.0-33.0) pg MCHC 32.9 (31.0-35.0) g/dl RDW 15.1 (11.0-16.0) % Plt Count 271 (160-400) X10*3/uL MPV 10.3 (9.4-12.3) fL Immature Gran % (Auto) 0.7 H (0.0-0.4) % Neut % (Auto) 65.7 (45-73) % Lymph % (Auto) 21.9 (20-40) % [place] % (Auto) 7.3 (2-11) % Eos % (Auto) 3.6 (0-4) % Baso % (Auto) 0.8 (0-2) % Lymph # (Auto) 1.6 (1.2-4.9) X10*3/uL [place] # (Auto) 0.5 (0.1-1.2) X10*3/uL Eos # (Auto) 0.3 (0.0-0.4) X10*3/uL Baso # (Auto) 0.1 (0.0-0.2) X10*3/uL Abs Immat Gran (auto) 0.05 H (0.00-0.03) X10*3/uL Absolute Neuts (auto) 4.8 (2.0-8.3) x10*3/uL Absolute Nucleated RBC 0.000 (0.0-0.012) X10*3/uL Nucleated RBC % (auto) 0.0 (0.0-0.2) /100WBC Hold Blue Top SEE NOTE Sodium 141 (135-145) mmol/L Potassium 4.0 (3.3-5.1) mmol/L Chloride 108 (96-108) mmol/L Carbon Dioxide 26 (22-29) mmol/L Anion Gap 11 L (12-20) BUN 7 L (9-16) mg/dL Creatinine 0.81 (0.5-1.4) mg/dL Estim Creat Clear Calc 90.5 Estimated GFR > 60 Random Glucose 84 (60-115) mg/dL Calcium 8.7 (8.4-10.2) mg/dL Total Bilirubin 0.5 (0.0-1.0) mg/dL Direct Bilirubin 0.2 (0.0-0.5) mg/dL AST 25 (5-31) U/L ALT 38 H (0-31) U/L Alkaline Phosphatase 104 (39-117) U/L Troponin I High Sens < 2.7 (<3.5-17.0) ng/L Total Protein 6.2 L (6.5-8.0) g/dL Albumin 3.5 (3.5-5.0) g/dL Independent Interpretation I performed an independent interpretation of an: Plain X-Ray Radiology Impression Discussion of test interpretation with radiology: I have reviewed the radiologist's reading. Radiologist Impression: Lungs are clear without acute infiltrates. No pneumothorax. Heart size normal. No acute bony abnormalities. Cervical fusion or ADR. Impression: No acute processes Discharge Plan Discharge Clinical Impression: Atypical chest pain, Neck pain with history of cervical spinal surgery Patient Disposition: Still a Patient Prescriptions: No Action fluoxetine 40 mg capsule 80 mg PO QAM atorvastatin 40 mg tablet 40 mg PO DAILY benztropine 0.5 mg tablet 0.5 mg PO BID prazosin 1 mg capsule 1 mg PO BEDTIME hydroxyzine pamoate 50 mg capsule 50 mg PO TID PRN (Reason: Anxiety) amlodipine 5 mg tablet 5 mg PO DAILY omeprazole 40 mg capsule,delayed release(DR/EC) 40 mg PO DAILY lorazepam [Ativan] 0.5 mg tablet 0.5 mg PO BID PRN (Reason: Anxiety) gabapentin 300 mg capsule 600 mg PO TID montelukast 10 mg tablet 10 mg PO BEDTIME furosemide 20 mg tablet 20 mg PO DAILY mirtazapine 15 mg tablet 45 mg PO BEDTIME loratadine 10 mg tablet 10 mg PO DAILY cyclobenzaprine 5 mg tablet 5 mg PO TID PRN (Reason: muscle spasm) bupropion HCl [Wellbutrin XL] 300 mg tablet extended release 24 hr 300 mg PO QAM diclofenac sodium 1 % Gel 2 g TOPICAL TID Rx Instructions: apply to single elbow, wrist or hand; for hand includes palm/fingers/back of hand Linzess 145 mcg capsule 145 mcg PO DAILY Caplyta 42 mg capsule 42 mg PO BEDTIME acetaminophen 500 mg tablet 500 mg PO Q6H PRN (Reason: Pain) albuterol sulfate [Ventolin HFA] 90 mcg/actuation HFA aerosol inhaler 2 puff inhalation QID PRN (Reason: Shortness Of Breath Or Wheezing) alum-mag hydroxide-simeth 200-200-20 mg/5 mL Suspension 15 ml PO TID PRN (Reason: Abdominal Discomfort) Rx Instructions: administer between meals and at bedtime diclofenac sodium 75 mg Tablet,Delayed Release (Dr/Ec) 75 mg PO BID ziprasidone HCl [Geodon] 40 mg capsule 40 mg PO BID lidocaine 4 % Gel 1 appl TOPICAL BID fluticasone furoate-vilanterol [Breo Ellipta] 200-25 mcg/dose Blister With Device 1 inh INHALATION DAILY Ozempic 1 mg/dose (4 mg/3 mL) pen injector 1 mg subcut QWEEK Patient Comments: patient takes injection every oxycodone 5 mg tablet 5 mg PO Q6H PRN (Reason: pain (scale score 7-10)) Qty: 30 0RF Rx Instructions: Partial Fill upon patient request. Print Language: Greenlandic
--- NOTE | 2024-10-31 22:49 | ECG_ITS ---
Test Reason : CHEST PAIN Blood Pressure : */* mmHG Vent. Rate : 57 BPM Atrial Rate : 57 BPM P-R Int : 160 ms QRS Dur : 90 ms QT Int : 466 ms P-R-T Axes : 39 47 31 degrees QTcB Int : 453 ms Sinus bradycardia Otherwise normal ECG No previous ECGs available Referred By: Aicha Suh Electronically Signed By: VIANCA AMBROCIO
[2024-10-31 23:09] LABS: Basophils Absolute Auto 0.1 X10*3/uL (0.0-0.2); Basophils Percent Auto 0.8 % (0-2); Eosinophils Absolute Auto 0.3 X10*3/uL (0.0-0.4); Eosinophils Percent Auto 3.6 % (0-4); Hematocrit 39.5 % (37.0-47.0); Imm Gran Abs Auto 0.05 X10*3/uL (0.00-0.03); Imm Gran Pct Auto 0.7 % (0.0-0.4); Lymphocytes Absolute Auto 1.6 X10*3/uL (1.2-4.9); Lymphocytes Percent Auto 21.9 % (20-40); MANUAL DIFF FLAG NO; Mean Corpuscular HGB Conc 32.9 g/dl (31.0-35.0); Mean Corpuscular Hemoglobin 28.8 pg (27.0-33.0); Mean Corpuscular Volume 87.6 fL (80.0-98.0); Mean Platelet Volume 10.3 fL (9.4-12.3); Monocytes Absolute Auto 0.5 X10*3/uL (0.1-1.2); Monocytes Percent Auto 7.3 % (2-11); Neutrophils Absolute Auto 4.8 x10*3/uL (2.0-8.3); Neutrophils Percent Auto 65.7 % (45-73); Platelet Count 271 X10*3/uL (160-400); Red Blood Count 4.51 X10*6/uL (4.20-5.50); Red Cell Distribution Width 15.1 % (11.0-16.0); White Blood Count 7.3 X10*3/uL (4.8-10.8)
[2024-10-31 23:27] LABS: Alanine Aminotransferase 38 U/L (0-31); Albumin Level 3.5 g/dL (3.5-5.0); Alkaline Phosphatase 104 U/L (39-117); Anion Gap 11 (12-20); Aspartate Amino Transferase 25 U/L (5-31); Bilirubin Direct 0.2 mg/dL (0.0-0.5); Bilirubin Total 0.5 mg/dL (0.0-1.0); Blood Urea Nitrogen 7 mg/dL (9-16); Calcium 8.7 mg/dL (8.4-10.2); Carbon Dioxide 26 mmol/L (22-29); Chloride 108 mmol/L (96-108); Creatinine Clr Calc Pharmacy 90.5; Estimated Glomerular Filt Rate > 60; Glucose Random 84 mg/dL (60-115); Sodium 141 mmol/L (135-145); Total Protein 6.2 g/dL (6.5-8.0)
[2024-10-31 23:35] LABS: Troponin-I High Sensitivity < 2.7 ng/L (<3.5-17.0)
[2024-10-31] MEDS: dexAMETHasone sod phosphate 4 MG/ML VIAL IVPUSH (23:35)
[2024-10-31 23:46] LABS: Influenza A PCR NEGATIVE (Negative); Influenza B PCR NEGATIVE (Negative); Resp Syncy Virus RNA Qual PCR NEGATIVE (Negative); SARS COV2 PCR INHOUSE NEGATIVE (Negative)
[2024-11-01 01:04] VITALS: BP 101/55; PULSE 57; RESP 14; TEMP 36.9; O2SAT 95
--- NOTE | 2024-11-01 02:00 | PC.NURSE ---
this rn assumed care of pt @ 2300. pt medicated according to nov pt disposition physicians observation awaiting to be seen by surgery in AM per dr nash
--- NOTE | 2024-11-01 03:22 | PC.NURSE ---
pt ambulatory to restroom reports R side armpit pain while walking states pain resolved when repositioned back to bed standby assist walking to restroom
[2024-11-01 05:52] VITALS: BP 107/77; PULSE 88; RESP 16; TEMP 36.9; O2SAT 98
[2024-11-01] MEDS: dexAMETHasone sod phosphate 4 MG/ML VIAL IVPUSH (05:54)
[2024-11-01 06:00] VITALS: BP 104/72; PULSE 76; RESP 14; TEMP 36.7; O2SAT 98
--- NOTE | 2024-11-01 06:29 | PC.NURSE ---
pt assisted to restroom to wash up pt ambulatory at this time. pt repositioned back in bed pt medicated according to jade pt provided with new socks pt denies new needs at this time
--- NOTE | 2024-11-01 07:20 | PC.NURSE ---
Patient to remain NPO until seen by neurosurgery, patient aware
--- NOTE | 2024-11-01 09:11 | HO.NEUROPN_ITS ---
Neurosurgery Operative Note Date of Service: 11/01/24 Narrative: HPI: Elma is a pleasant 64-year-old female who is status post C6-7, C7-T1 ACDF with anterior plating at C6-7 on 10/15/2024. She reports that she did well in the immediate postoperative period. She presented to [facility] emergency department for bilateral axilla pain and pain near her ribcage after moving some heavy boxes in her home 3 days ago. She reports that the following day she began experiencing fairly severe pains in her bilateral axilla and ribcage. Notably, she reports that she also has a long history of chronic muscle spasms that have flared-up similarly to her current symptoms over the past few years. She also reports that she is out of her post-operative pain medication, and has not attempted to refill it as of yet. Today, she reports full range of motion of her upper extremities, no issues with dexterity, ambulation, or strength. No issues with bowel / bladder. She does report some of the continued pain that she had yesterday when presenting to [facility]. She states that she does not believe her current pain as a result of her surgery with us a couple of weeks ago, as she overall feels better than she did prior to surgery. Exam: The patient is in no acute distress in his overall very well-appearing. She has 5/5 strength in her upper and lower extremities. When comparing this to prior notes it seems her strength is notably better in the left upper extremity. She continues to report some low-grade numbness in her left hand, as she did preoperatively. She has been ambulating well since arriving to the emergency department and is ambulating to the bathroom independently. She has continued hyperreflexia most notable in the left upper extremity. (+) bilateral Caicedo's, (-) bilateral clonus, (-) bilateral Babinski's, toes down. Plan: Elma is a pleasant 64-year-old female who is status post C6-7, C7-T1 ACDF with anterior plating at C6-7 on 10/15/2024. She self reports that her symptoms have much improved since surgery. This is consistent with my examination evaluation today. I believe she may be suffering from some kind of acute musculoskeletal spasm or injury secondary to lifting heavy boxes 3 days ago. I informed the patient that she should be at about an 8-12 lb weight restriction and should be limiting lifting activities with her upper extremities in the immediate postoperative period. Her myelopathic reflexes are similar to those exhibited prior to surgery; we do not expect these to improve directly after surgery. She has no weakness, no new numbness, and no difficulties with ambulation. In regards to her postoperative presentation regarding C6-7, C7-T1 ACDF, there is no need for admission or subsequent surgery. I will refill her prescription for pain medication, and also send her in a prescription for baclofen 10 mg t.i.d. to aid with her muscle spasms. I we will send a workload message to our front office staff and have the patient follow up with us in clinic this week. These findings and this plan were discussed with the attending neurosurgeon Dr. Ojeda who is in agreement. Akira Ojeda MD,PhD [facility] [place]
[2024-11-01 09:54] VITALS: BP 104/72; PULSE 76; RESP 14; TEMP 36.7; O2SAT 98
== END 2024-11-01 09:54 | disposition home or self-care (01) ==
PROVIDERS: Emergency Provider Emergency Medicine
DX: R07.89 Other chest pain (principal); M54.2 Cervicalgia; M54.50 Low back pain, unspecified; Z79.899 Other long term (current) drug therapy; Z03.818 Encounter for observation for suspected exposure to other biological agents ruled out
CPT/HCPCS: 0241U; 71045; 80048; 80076; 84484; 85025; 93005; 96374; 99284; 99285; J1100

== ENCOUNTER → 2024-10-31 22:49 | Outpatient (BNV) | payer MEDICAID, SELFPAY | PROVIDERS: Emergency Provider Emergency Medicine; Visit Provider Internal Medicine | DX: R07.9 Chest pain, unspecified (principal); R00.1 Bradycardia, unspecified | CPT/HCPCS: 93010 ==

== ENCOUNTER → 2024-10-31 22:50 | Outpatient (BNV) | payer MEDICAID, SELFPAY | PROVIDERS: Emergency Provider Emergency Medicine; Visit Provider Radiology Diagnostic Radiology | DX: R07.9 Chest pain, unspecified (principal) | CPT/HCPCS: 71045 ==

== ENCOUNTER → 2024-10-31 23:19 | Outpatient (BNV) | payer MEDICAID, SELFPAY | PROVIDERS: Emergency Provider Emergency Medicine; Visit Provider Physician Assistant | DX: Z48.89 Encounter for other specified surgical aftercare (principal) | CPT/HCPCS: 99024 ==

== ENCOUNTER 2024-11-05 13:32 | Outpatient (AMB) | payer MEDICAID, SELFPAY ==
--- NOTE | 2024-11-05 13:19 | HO.SPINEOV ---
Intake Visit Reasons: 1st post Intake Note: Ms. Arnel Golden is here today for her 1st post op. Sheet Metal Lay Out Worker Required: Yes Sheet Metal Lay Out Worker Name: Tablet Allergies No Known Allergies Allergy (Verified 11/05/24 13:36) Assessment & Plan Assessment & Plan (1) Cervical disc disorder: Code(s): M50.90 - Cervical disc disorder, unspecified, unspecified cervical region Category: Medical Plan Sheet Metal Lay Out Worker [id number] utilized for this visit. Procedure: C6-7, C7-T1 ACDF Elma comes in today for a follow up appointment after being seen in the Emergency department over the weekend. She was accompanied by her daughter. To recap she presented to the [facility] emergency department after what sounds like an acute musculoskeletal injury. Three days prior to presenting to [facility] emergency department she was lifting heavy boxes and felt as though she strained a muscle near her ribs and/or right shoulder. She was transferred to [facility] where she recounted this incident. She reported that she actually felt much better than she did prior to surgery, and that her left arm pain was very much so improved. She also reported little to no neck pain. This continues to be her presentation today. She does report continued issues with her right shoulder and pains near her ribcage, but is otherwise doing well. She states that the numbness/tingling in her left arm/hand has greatly improved. She inquired about the surgery that she had done, and I showed her some of the fluoroscopy images from her procedure. The patient is well-appearing, in no acute distress. She ambulates independently with a non spastic nonantalgic gait. She has full 5/5 strength in her bilateral upper extremities. She maintains bilateral Caicedo's, which was her baseline during her last examination by this global technical writer. Her anterior incision site is clean, dry, and well healing. She has no notable new neurological deficits. I would like Elma to follow up with us again in 6 weeks. Due to her protracted pain, I informed her we are able to partially refilled her pain medication 1 more time if she needs it before discontinuing this medication. We will obtain a set of x-rays at her next visit. I answered all of her questions to the best of my ability. Akira Ojeda MD,PhD [facility] Coding Level of Care Code Global (96123) Diagnoses Cervical disc disorder M50.90
--- OUTSIDE RECORDS SUMMARY | 2024-11-05 16:39 | XMS_ITS | Encounter Summary ---
Author Organization [facility] Address [address] [facility] [address] [facility] [address] [place] [address] Phone Care Team Providers Care Design Checker Name Role Phone Pawan Chavez LILY Primary Care Provider [phone] Encounter Details Date Type Department Care Team (Late st Contact Info) Description 02/08/2021 Orders Only [facility] [address] [facility] [address] [place] [address] Provider, MD Jonnie [address] [place] [id number] Social History Tobacco Use Types Packs/Day Years Used Date Smoking Tobacco: Never Assessed Comments Unknown Sex and Gender Information Value Date Recorded Sex Assigned at Not on file Legal Sex Female 2:56 PM EDT Gender Identity Not on file Sexual Orientation Not on file documented as of this encounter Plan of Treatment Upcoming Encounters Date Type Department Care Team (Late st Contact Info) Description 03/25/2025 1:00 PM EDT Office Visit [facility] [address] [address] Castro Bailey MD [address] [facility] [address] [place] [address] documented as of this encounter Procedures Procedure Name Priority Date/Time Associated Diagnosis Comments EXT RESULT ENTRY Routine 07/30/2020 documented in this encounter Results * EXT RESULT ENTRY (07/30/2020) Historical Provider LAB BLOOD ORDERABLES Christy l Result documented in this encounter Visit Diagnoses Not on filedocumented in this encounter Care Teams Design Checker Relationship Specialty Start Date End Date Pawan Chavez FNP [address] [place] [address] PCP - General Nurse Practitioner 02/01/21 documented as of this encounter
--- OUTSIDE RECORDS SUMMARY | 2024-11-05 16:39 | XMS_ITS | Clinical Summary ---
Author Organization [facility] Address [address] [place] [address] Care Team Providers Care Promotions Intern Name Role Phone Pawan Chavez Primary Care Provider [phone] Source Comments PLEASE NOTE, if this patient is a minor, it may be UNLAWFUL to discuss sensitive information that is contained in these records (such as FAMILY PLANNING, MENTAL HEALTH or SUBSTANCE ABUSE) with the minor patient's parent or other person without the patient's specific authorization.[facility] Allergies No known active allergies Medications nebulizer and compressorIndicat ions:Moderate persistent asthma, unspecified whether complicated Use with nebulizer solution Diag: J45.40 1 Each 020 Active caneIndications: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, unspecified back pain laterality,Chroni c pain of both knees,Rib pain on left side Use daily 1 Each 020 Active blood pressure monitorIndication s:Essential hypertension Use daily and prn 1 Kit 020 Active walkerIndications :Chronic pain of both knees,Neck pain,Chronic low back pain with bilateral sciatica, unspecified back pain laterality,Rib pain on left side Rolling walker with seat, use daily x 99 years 1 Each 021 Active miscellaneous medical supply miscIndications: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, unspecified back pain laterality,Lumbar disc prolapse with root compression,Frequ ent falls,Compressed cervical disc by miscellaneous route once daily Tub bench x99 years 1 Each 022 Active miscellaneous medical supply miscIndications: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, unspecified back pain laterality,Lumbar disc prolapse with root compression,Frequ ent falls,Compressed cervical disc by miscellaneous route once daily 4 wheeled walker with seat to be used daily x99 years 1 Each 022 Active miscellaneous medical supply miscIndications: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, unspecified back pain laterality,Lumbar disc prolapse with root compression,Frequ ent falls,Compressed cervical disc by miscellaneous route once daily Over toilet commode to be used daily x99 years 1 Each 022 Active miscellaneous medical supply miscIndications:L eg swelling by miscellaneous route daily Compression stockings 15-20mmHg use daily x99 years 2 Each 1 022 Active diclofenac sodium (VOLTAREN) 1 % gelIndications:Ch ronic low back pain with bilateral sciatica, unspecified back pain laterality,Chroni c pain of both knees Apply topically 3 (three) times daily Apply 4 gm to knees, back, neck 100 g 3 023 Active FLUoxetine (PROZAC) 40 mg capsule Take 2 capsules by mouth every morning. Prescribed by Dr. Babs Lentz (psych). 023 Active hydrOXYzine pamoate (VISTARIL) 50 mg capsule Take 1 capsule by mouth three times daily as needed for anxiety or insomnia. May take 1 tablet at bedtime if needed. Prescribed by Dr. Babs Lentz (psych). Active buPROPion XL (WELLBUTRIN XL) 150 mg 24 hr tablet Take 1 tablet by mouth every morning. Prescribed by Dr. Babs Lentz (psych). 023 Active buPROPion HCL (WELLBUTRIN XL) 300 mg 24 hr tablet Take 1 tablet by mouth every morning. Prescribed by Dr. Babs Lentz (psych) 023 Active acetaminophen (TYLENOL) 500 mg tabletIndications :Edema, unspecified type,Moderate persistent asthmatic bronchitis with acute exacerbation,Gambling Box Person earl pain of both knees,Neck pain,Chronic low back pain with bilateral sciatica, unspecified back pain laterality,Rib pain on left side,Essential (primary) hypertension Take 1 Tablet by mouth every 6 (six) hours as needed for pain 60 Tablet 2 023 Active naloxone (NARCAN) 4 mg/actuation nasal spray UAD 1 Each 1 023 Active LORazepam (ATIVAN) 0.5 mg tablet Take 1 tablet (0.5 mg) by mouth twice daily as needed. Prescribed by Dr. Babs Lentz (psych). 90 Tablet 1 024 Active lidocaine (LIDODERM) 5 % patchIndications: Chronic low back pain with bilateral sciatica, unspecified back pain laterality APLICAR 1 PARCHO AL AREA AFECTADO. DEJAR POR 12 HORAS Y REMOVER POR 12 HORAS. REPETIR CADA LAURA. 30 Patch 3 024 Active montelukast (SINGULAIR) 10 mg tabletIndications :Moderate persistent asthmatic bronchitis with acute exacerbation TAKE ONE TABLET BY MOUTH AT BEDTIME 90 Tablet 024 Active LINZESS 145 mcg cap [place], [place] [phone] 30 Each 11 30 Source: Surescripts (Fill History, Ambulatory)Autho rized by: FANY RESENDIZ 024 Active ADVANCED ANTACID-ANTIGAS 200-200-20 mg/5 mL suspension [place], [place] [phone] 1680 mL 11 28 Source: Surescripts (Fill History, Ambulatory)Autho rized by: FANY RESEDNIZ 024 Active fluticasone furoate-vilantero L (BREO ELLIPTA) 200-25 mcg/doseIndicatio ns:Mild intermittent asthma without complication Inhale 1 Puff into the lungs daily (Rinse mouth following use) stop Advair 60 Each 3 024 Active albuterol HFA 90 mcg/actuation inhalerIndication s:Mild intermittent asthma without complication Inhale 2 Puffs into the lungs every 4 (four) hours as needed for shortness of breath 18 g 1 024 Active benztropine (COGENTIN) 0.5 mg tablet Take 1 Tablet by mouth 2 (two) times daily (Pres[facility] Active mirtazapine (REMERON) 30 mg tablet Take 1 Tablet by mouth nightly at bedtime (Prescribed by Nelson Lipscomb) 024 Active gabapentin (NEURONTIN) 300 mg capsule Chuichu 2 capsulas por via oral 3 (ciro) veces al Laura 180 Capsule 3 024 Active traZODone (DESYREL) 100 mg tablet EVANGELINA 1 COMPRIMIDO POR LA BOCA DIARIO A LA HORA DE DORMIR. Prescribed by Dr. Babs Lentz (psych). 90 Tablet 024 Active atorvastatin (LIPITOR) 40 mg tabletIndications :Essential (primary) hypertension,Mixe d hyperlipidemia Take 1 Tablet by mouth once daily 90 Tablet 1 024 Active semaglutide (OZEMPIC) 0.25 mg or 0.5 mg(2 mg/1.5 mL) pen injectorIndicatio ns:Class 2 obesity due to excess calories without serious comorbidity with body mass index (BMI) of 38.0 to 38.9 in adult Take 0.25mg weekly for 4 weeks followed by 0.5mg weekly for 4 weeks 1.5 mL 1 024 Active prazosin (MINIPRESS) 1 mg capsule TAKE ONE CAPSULE BY MOUTH AT BEDTIME FOR nightmares 024 Active ziprasidone HCL (GEODON) 60 mg capsule TAKE ONE CAPSULE BY MOUTH TWICE DAILY with food (moood /agitation) Active esomeprazole (NEXIUM) [address] capsule Take 40 mg by mouth Active cyclobenzaprine (FLEXERIL) 5 mg tabletIndications :Lumbar disc prolapse with root compression Take 1 Tablet by mouth 3 (three) times daily as needed for muscle spasms 60 Tablet 1 024 Active loratadine (CLARITIN) 10 mg tabletIndications :Postnasal drip Take 1 Tablet by mouth once daily as needed for allergies 90 Tablet 2 024 Active famotidine (PEPCID) 20 mg tabletIndications :Gastroesophageal reflux disease, unspecified whether esophagitis present Take 1 Tablet by mouth 2 (two) times daily 180 Tablet 024 Active furosemide (LASIX) 20 mg tabletIndications :Edema, unspecified type Chuichu 1 tableta por vIa oral jorge vez al Laura 90 Tablet 024 Active semaglutide (OZEMPIC) 1 mg/dose (4 mg/3 mL) pen injectorIndicatio ns:Class 2 obesity due to excess calories without serious comorbidity with body mass index (BMI) of 38.0 to 38.9 in adult Inject 1 mg into the skin once a week After 0.25 and 0.5mg titration 3 mL 3 024 Active diclofenac sodium (VOLTAREN) [address] tabletIndications :Lumbar disc prolapse with root compression TAKE ONE TABLET BY MOUTH TWICE DAILY 60 Tablet 1 024 Active amLODIPine (NORVASC) 5 mg tabletIndications :Essential (primary) hypertension TAKE ONE TABLET BY MOUTH EVERY DAY 90 Tablet 025 Active amLODIPine (NORVASC) 5 mg tabletIndications :Essential (primary) hypertension Take 1 Tablet by mouth once daily 90 Tablet 024 2024 Discontinued Active Problems Problem Noted Date Diagnosed Date MDD (major depressive disorder) 05/14/2024 Overview (05/14/2024): 05/07/24 Psych inpatient admission for self harm via [facility] Class 2 obesity due to exces s calories without serious comorbidity with body mass index (BMI) of 36.0 to 36.9 in adult 05/25/2023 Microscopic hematuria 07/17/2022 Overview (07/17/2022): July 2022: Urology workup stable, they will repeat CT imaging in one year Abnormal mammogram 06/07/2022 Overview (06/07/2022): [facility] November 2021 Attempted [facility] ([facility]) 06/06/2022 FERNIE (obstructive sleep apnea) 06/06/2022 Overview (06/06/2022): April 2022: CPAP ordered by sleep medicine but pt has not received it Prediabetes 06/06/2022 Gastroparesis 05/11/2021 Lumbar disc prolapse with root compression 05/11 Compressed cervical disc 05/11/2021 Essential hypertension 01/15/2020 Overview (01/15/2020): Per [facility] History and physical on 01/06/2020 Mild intermittent asthma without complication Overview (01/15/2020): Per [facility] History and physical 01/04/2020 Superficial gastritis without hemorrhage 020 Post traumatic stress disorder 01/15/2020 Overview (01/15/2020): Per [facility] 01/04/2020 Adjustment disorder with mix ed disturbance of emotions and conduct 01/15/2020 Overview (06/06/2022): May 2022: Follows at [facility] Per [facility] 01/04/2020 Encounters Date Type Department Care Team Description 11/03/2024 Interim Notes [address] [phone] Amaya Cat RN 11/03/2024 Interim Notes [address] [phone] Andra Purcell from Last 3 Months Immunizations Name Administration Dates Next Due Flu, Preservative Free 05/24/2023,2021,09/28/2021,07/22 Influenza (FLUBLOK),recombinant,injectable,prese rvative Free 06/27/2024 Moderna COVID-19 Vaccine, re d cap blue label, 12+ Primary Series 01/26/2021,12/29/2020 PFIZER COVID VACCINE, PURPLE CAP, 12+ 01/24/2022 ,09/28/2021 PNEUMOCOCCAL CONJUGATE PCV 2 0 (Prevnar) 05/24/2023 PNEUMOCOCCAL POLYSACCHARIDE PPV23 07/22/2020 Pfizer COVID-19 (Comirnaty), Mrna, Lnp-s, Pf, Kenny-sucrose, 30 Mcg/0.3 Ml, 12yr+ 06/27/2024 TDAP 09/28/2021,01/04/2020 ZOSTER VACCINE, RECOMBINANT (SHINGRIX) 2,01/24/2022 Family History Medical History Relation Name Comments Hypertension Brother Heart attack Father Hypertension Father Heart attack Mother Hypertension Mother Cancer Sister unknown types o f cancer, breast? Relation Name Status Comments Brother Daughter Alive Father Mother Sister Social History Tobacco Use Types Packs/Day Years Used Date Smoking Tobacco: Never Smokeless Tobacco: Never Tobacco Cessation:Counseling Given: Not Answered Alcohol Use Standard Drinks/Week Comments Not Currently 0 (1 standard drink = 0.6 oz pur e alcohol) Social Connections Answer Date Recorded Connectedness 0 03/22/2021 Financial Resource Strain Answer Date R ecorded Financial Resource Strain 0 2020 Stress Answer Date Recorded Stress 0 03/22/2021 Physical Activity Answer Date Recorded Physical Activity 0 01/15/2020 Food Insecurity Answer Date Recorded Food 0 03/22/2021 Transportation Needs Answer Date Record ed Transportation 0 03/22/2021 Housing Stability Answer Date Recorded Housing 0 03/22/2021 Safety and Environment Answer Date Christ rded Safety 0 03/22/2021 Utilities Answer Date Recorded Utilities 0 03/22/2021 Employment Answer Date Recorded Stress 0 11/28/2021 Comments No Sex and Gender Information Value Date Recorded Sex Assigned at Female 06/04/2020 7:07 AM PDT Legal Sex Female 10:20 AM PST Gender Identity Female 06/04/2020 7:07 AM PDT Sexual Orientation Don't know 06/04/2020 7: 07 AM PDT Occupation Industry Job Start Date Job End Date on disability Not on file Not on file Not on file Last Filed Vital Signs Vital Sign Reading Time Taken Comments Blood Pressure 132/90 08/02/2024 9:12 AM EST Pulse 78 08/02/2024 9:12 AM EST Temperature 37.1 ??C (98.7 ??F) 08/02/2024 9:12 AM ES T Respiratory Rate 16 08/02/2024 9:12 AM EST Oxygen Saturation 98% 11/06/2023 2:14 PM EST Inhaled Oxygen Concentration - - Weight 108.4 kg (239 lb) 08/02/2024 9:12 AM EST Height 172.7 cm (5' 8 ) 11/06/2023 2:14 PM EST Body Mass Index 36.34 11/06/2023 2:14 PM EST Plan of Treatment Upcoming Encounters Date Type Department Care Team (Late st Contact Info) Description 11/27/2024 10:40 AM EDT Office Visit [facility] [address] [place] [address] Pawan Chavez FNP [address] [place] [address] Health Maintenance Due Date Last Done Comments HPV Screening [address] CT Colonography 2007 FIT/gFOBT 2007 Fecal DNA 2007 Flexible Sigmoidoscopy 2007 Depression Monitoring 02/04/2024 11/06/2023 , 03/30/2023, 02/08/2023, Additional history exists Alcohol and Drug Screen 09/10/2024 11/06/19 24, 03/30/2023, 10/10/2022, Additional history exists Annual Preventive Care Visit 11/06/2024, 02/08/2023, 06/06/2022, Additional history exists Breast Cancer Screening (Mammogram) 06/20/2025 06/20/2024, 06/18/2023, 11/11/2021, Additional history exists Diabetes Screening 06/27/2025 06/27/2024, 1 , 03/30/2023, Additional history exists Lipid Screening 06/27/2025 06/27/2024, 07/09/2022, 07/05/2022, Additional history exists Tobacco Screening 08/02/2025 08/02/2024, 11/19/2020 Pap Smear 02/08/2026 02/08/2023 Colonoscopy 08/03/2026 08/03/2021 Colorectal Cancer Screening 08/03/2026 Cervical Cancer Screening 02/09/2028 Pap + HPV 02/09/2028 02/08/2023 Imm-DTaP/Tdap/Td (3 - Td or Tdap) 09/28/2031 022, 01/04/2020 HIV Screening Completed 05/28/2020 Hepatitis C Screening Completed 05/28/2020 Imm-Zoster, Recombinant Completed 04/19/2022, 01/24 Imm-Pneumococcal Completed 05/24/2023, 07/22/2020 [id number] Completed 06/27/2024, 01/08, 09/28/2021, Additional history exists Imm-Influenza Completed 06/27/2024, 05/11, 06/06/2022, Additional history exists Cervical Ablation/Cold-Knife Conization Discontinued Cervical Cryotherapy Discontinued Colposcopy Discontinued Endometrial Biopsy Discontinued Excision/Leep Discontinued HPV Genotyping Discontinued Vaginal Pap Discontinued Vulvoscopy Discontinued Procedures Procedure Name Priority Date/Time Associated Diagnosis Comments HEMOGLOBIN GLYCOSYLATED A1C Routine 06/27/2024 10:07 AM EDT Class 2 obesity due to excess calories without serious comorbidity with body mass index (BMI) of 38.0 to 38.9 in adult LIPID PANEL Routine 06/27/2024 10:07 AM EDT Class 2 obesity due to excess calories without serious comorbidity with body mass index (BMI) of 38.0 to 38.9 in adult HISTORIC MAMMOGRAM 06/20/2024 3: 00 AM EDT THINPREP PAP & HPV MRNA E6/E7 RFLX HPV 16,18/[address]/NG Routine 02/08/2023 3:07 PM EDT Encounter for Papanicolaou smear of vagina as part of routine gynecological examination Encounter for screening for human papillomavirus (HPV) HISTORIC COLONOSCOPY 08/03/2021 3:00 AM EST ANTIBODY HIV-1&HIV-2 SINGLE RESULT Routine 05/28/2020 8:57 AM EDT Encounter for screening for HIV HEPATITIS C ANTIBODY Routine 05/28/2020 8:57 AM EDT Encounter for hepatitis C screening test for low risk patient from Last 3 Months or Most Recently Relevant to Health Maintenance Results * (ABNORMAL) HEMOGLOBIN GLYCOSYLATED A1C (06/27/2024 10:07 AM EDT) HEMOGLOBIN A1C 6.2(H) <5.7 % of total Hgb [employer] Comment: For someone without known diabetes, a hemoglobin A1c value between 5.7% and 6.4% is consistent with prediabetes and should be confirmed with a follow-up test. For someone with known diabetes, a value <7% indicates that their diabetes is well controlled. A1c targets should be individualized based on duration of diabetes, age, comorbid conditions, and other considerations. This assay result is consistent with an increased risk of diabetes. Currently, no consensus exists regarding use of hemoglobin A1c for diagnosis of diabetes for children. Blood Blood / Unknown 06/27/2024 1 0:07 AM EDT 06/27/2024 10:08 AM EDT Pawan Chavez [facility] - BLOOD DRAW Edited R esult - Final Performing Organization Address [facility] Co de Phone Number [facility] [address] [address], [facility] [address] [address] * LIPID PANEL (06/27/2024 10:07 AM EDT) [facility] Signature CHOLESTEROL, TOTAL 134 <200 mg/dL [facility] HDL CHOLESTEROL 64 > OR = 50 mg/dL [facility] TRIGLYCERIDES 94 <150 mg/dL [facility] LDL-CHOLESTEROL 52 99 mg/dL (calc) [facility] Comment: Reference range: <100 Desirable range <100 mg/dL for primary prevention; ?? <70 mg/dL for patients with CHD or diabetic patients with > or = 2 CHD risk factors. LDL-C is now calculated using the Jeff-Leo calculation, which is a validated novel method providing better accuracy than the Friedewald equation in the estimation of LDL-C. Jeff SS et al. LIVE. 2013;310(19): 8464-3082 (http://education.[employer]/faq/TZC519) CHOL/HDLC RATIO 2.1 <5.0 (calc) [facility] NON-HDL CHOLESTEROL 70 <130 mg/dL (calc) [facility] Comment: For patients with diabetes plus 1 major ASCVD risk factor, treating to a non-HDL-C goal of <100 mg/dL (LDL-C of <70 mg/dL) is considered a therapeutic option. Blood Blood / Unknown 06/27/2024 1 0:07 AM EDT 06/27/2024 10:08 AM EDT us Pawan Chavez [facility] - BLOOD DRAW Final Re sult Performing Organization Address [facility] de Phone Number [facility] [address] [address], [employer] [address] [place] [phone] * HISTORIC MAMMOGRAM (06/20/2024 3:00 AM EDT) 06/20/2024 3:00 AM EDT us Pawan Kathy RAILROAD OPERATING ENGINEER IMG MAMMO Final Res ult * THINPREP PAP & HPV MRNA E6/E7 RFLX HPV 16,18/[address]/NG (02/08/2023 3:07 PM EDT) CHLAMYDIA TRACHOMATIS RNA, TMA NOT DETECTED NOT DETECTED [facility] NEISSERIA GONORRHOEAE RNA, TMA NOT DETECTED NOT DETECTED [facility] COMMENT [employer] CLINICAL INFORMATION See Note [employer] Comment:ROUTINE EXAM LMP See Note [employer] [facility] Comment:PM PREV. PAP See Note [employer] Comment:NONE GIVEN PREV. BX See Note [employer] Comment:NONE GIVEN SOURCE See Note [employer] Comment:Cervix STATEMENT OF ADEQUACY See Note [employer] Comment: Specimen processed and examined, but unsatisfactory for evaluation due to an insufficient number of squamous cells. INTERPRETATION/RESU LT See Note [employer] Comment: Unable to provide interpretation due to unsatisfactory specimen adequacy. MANAGER COPY See Note [employer] Comment: DCR, CT(ASCP) CT screening location: [address] ??[address] REVIEW MANAGER COPY See Note [employer] Comment: DMM, CT(ASCP) CT screening location: [address] ??[address] COMMENT [employer] [facility] HPV MRNA E6/E7 Not Detected Not Detected [employer] [facility] Comment: Methodology: Automotive Quality Manager-Mediated Amplification This assay detects E6/E7 viral messenger RNA (mRNA) from 14 high-risk HPV types (16,18,31,33,35,39,45,51,52,56,58,59,66,68). Cervical sources are required for HPV testing. If a vaginal source from a patient who has had a total hysterectomy with removal of cervix was submitted, please contact the testing laboratory for alternative testing options. For additional information, please refer to http://[employer]/faq/HGL529b7 (This link if provided for information/ educational purposes only.) CYTOLOGY Cervix uteri structure / Unknown 02/08/2023 3:07 PM EDT 02/09/2023 6:55 AM EDT Narrative [facility] - 02/13/2023 1:51 PM EDT EXPLANATORY NOTE: The Pap is a screening test for cervical cancer. It is not a diagnostic test and is subject to false negative and false positive results. It is most reliable when a satisfactory sample, regularly obtained, is submitted with relevant clinical findings and history, and when the Pap result is evaluated along with historic and current clinical information. The analytical performance characteristics of this assay, when used to test SurePath(TM) specimens have been determined by [employer]. The modifications have not been cleared or approved by the FDA. This assay has been validated pursuant to the CLIA regulations and is used for clinical purposes. For additional information, please refer to https://[employer]/faq/VVK708 (This link is being provided for information/ educational purposes only.) Krista Lemus MD LAB - NO BLOOD DRAW Final Result [facility] [address] [address], [facility] [address] [address] * HISTORIC COLONOSCOPY (08/03/2021 3:00 AM EST) 08/03/2021 3:00 AM EST Pawan Chavez RAILROAD OPERATING ENGINEER PROCEDURES Final Res ult * HEPATITIS C ANTIBODY (05/28/2020 8:57 AM EDT) HEPATITIS C VIRUS SCREEN NEGATIVE NEGATIVE [facility] Blood specimen (specimen) Blood / Unknown 05/28/2020 8:57 AM EDT 05/28/2020 9:03 AM EDT N[facility]ative [facility] - 05/28/2020 2:48 PM EDT [employer], [place] [address] Cardiac Exercise Physiologist - Elma Jay MD PT ID [id number] ORD# [id number] Conrdafrancia Lacy APPLICATION ARCHITECT LAB - BLOOD DRAW Final Result Performing Organization Address City/[facility]/ZIP Co de Phone Number [address] [address], [place] [phone] * HIV-1 & HIV-2 ANTIBODIES (05/28/2020 8:57 AM EDT) [facility] HIV 1 AND 2 ANTIBODY SCREEN NEGATIVE NEGATIVE [facility] Comment: This assay is a 4th generation assay allowing for earlier detection of HIV infection by detecting the presence of the HIV-1 p24 antigen as well as the traditional antibodies to HIV type 1 (including group O) and type 2. ??Use of a 4th generation assay is the current CDC recommendation for HIV screening. Blood specimen (specimen) Blood / Unknown 05/28/2020 8:57 AM EDT 05/28/2020 9:03 AM EDT [facility] - 05/28/2020 2:48 PM EDT [employer], [place] [address] Cardiac Exercise Physiologist - Elma Jay MD PT ID [id number] ORD# [id number] Conradfrancia Lacy APPLICATION ARCHITECT LAB - BLOOD DRAW Final Result [address] [address], [place] [phone] from Last 3 Months or Most Recently Relevant to Health Maintenance Insurance [employer] [address] [employer] Care Teams Promotions Intern Relationship Specialty Start Date End Date Pawan Chavez FNP [address] [place] [address] PCP - General 06/22/20
--- OUTSIDE RECORDS SUMMARY | 2024-11-05 16:39 | XMS_ITS | Clinical Summary ---
Author Organization [facility] Address [address] [place] [address] Phone Care Team Providers Care Rug Cleaner Name Role Phone Eryn Chavezor LILY Primary Care Provider [phone] [phone] Allergies No known active allergies Medications omeprazole (PriLOSEC) [address] capsule Take 20 mg by mouth 1 Active loratadine (CLARITIN) 10 MG tablet Take 10 mg by mouth 1 Active ibuprofen (ADVIL,MOTRIN) 800 MG tablet Take 300 mg by mouth And 150mg daily 1 Active furosemide (LASIX) 20 MG tablet Take 1 tablet by mouth 1 (one) time each day 0 Active fluticasone (FLONASE) 50 MCG/ACT nasal spray Administer 1 spray into affected nostril(s) 1 Active LORazepam (ATIVAN) 0.5 MG tablet Take 0.5 mg by mouth if needed 1 Active docusate sodium (COLACE) 100 MG capsule Take 100 mg by mouth 1 Active gabapentin (NEURONTIN) 300 MG capsule 2 Active hydrOXYzine (VISTARIL) 50 MG capsule TAKE 1 CAPSULE BY MOUTH TWICE DAILY NEEDED FOR ANXIETY OR INSOMNIA 2 Active omeprazole (PriLOSEC) [address] capsule Take 40 mg by mouth 2 Active Stimulant Laxative 8.6-50 MG per tablet Take 1 tablet by mouth 2 (two) times a day 2 Active senna-docusate (PERICOLACE) 8.6-50 MG per tablet Take 1 tablet by mouth 2 Active oxyCODONE-acetam inophen (PERCOCET) 5-325 MG per tablet Take 1 tablet by mouth 2 Active famotidine (PEPCID) 20 MG tablet Take 20 mg by mouth in the morning and 20 mg in the evening. Active atorvastatin (LIPITOR) 40 MG tablet Take 40 mg by mouth 1 (one) time each day Active amLODIPine (NORVASC) 5 MG tablet Take 5 mg by mouth 1 (one) time each day Active furosemide (LASIX) 20 MG tablet Take 20 mg by mouth in the morning and 20 mg in the evening. Active montelukast (SINGULAIR) 10 MG tablet Take 10 mg by mouth every night Active traZODone (DESYREL) 100 MG tablet Take 100 mg by mouth every night Active esomeprazole (NexIUM) [address] capsule Take 40 mg by mouth 1 (one) time each day before breakfast Do not open capsule. Active mirtazapine (REMERON CECY-TAB) 15 MG dispersible tablet Take 15 mg by mouth every night Active FLUoxetine (PROzac) 40 MG capsule Take 40 mg by mouth 1 (one) time each day 2 tabs Active ziprasidone (GEODON) 80 MG capsule Take 80 mg by mouth in the morning and 80 mg in the evening. Take with meals. Active benztropine (COGENTIN) 0.5 MG tablet Take 0.5 mg by mouth in the morning and 0.5 mg in the evening. Active LORazepam (ATIVAN) 0.5 MG tablet Take 0.5 mg by mouth every 6 (six) hours if needed for anxiety Active hydrOXYzine (VISTARIL) 50 MG capsule Take 50 mg by mouth 3 (three) times a day if needed for itching Active Active Problems Problem Noted Date Diagnosed Date Edema 03/07/2023 Cervical radiculitis 01/17/2023 Microscopic hematuria 07/17/2022 Overview (01/17/2023): July 2022: Urology workup stable, they will repeat CT imaging in one year Mammography abnormal 06/07/2022 Overview (01/17/2023): [facility] November 2021 Suicide attempt 06/06/2022 Prediabetes 06/06/2022 Obstructive sleep apnea syndrome 06/06/2022 Overview (01/17/2023): April 2022: CPAP ordered by sleep medicine but pt has not received it Asthma 10/13/2021 Body mass index 30+ - obesity 10/13/2021 Depressive disorder 10/13/2021 Hyperlipidemia 10/13/2021 Chronic kidney disease, stage 2 (mild) Constipation 06/07/2021 Dysphagia 06/07/2021 Epigastric pain 06/07/2021 Family history of cancer of colon 06/07/2021 Cervical disc disorder 05/11/2021 Gastroparesis 05/11/2021 Lumbar disc prolapse with radiculopathy 05/11/20 21 Disorder of function of stomach 04/11/2021 Essential hypertension 01/15/2020 Overview (02/08/2021): Per [facility] History and physical on 01/06/2020 Adjustment disorder with mix ed disturbance of emotions AND conduct 01/15/2020 Overview (01/17/2023): May 2022: Follows at [facility] Per [facility] 01/04/2020 Resolved Problems Problem Noted Date Diagnosed Date Resolved Date Uncomplicated mild intermittent asthma 04/11/2021 04/11/2021 Stage 3 chronic kidney disease 02/08/2021 07/05/2021 Posttraumatic stress disorder 01/15/2020 04/11/2021 Overview (02/08/2021): Per [facility] 01/04/2020 Immunizations Name Administration Dates Next Due Influenza, Quadrivalent, Preservative Free 06/06,09/28/2021,07/22/2020 Influenza, Unspecified 06/06/2022,09/28/2021,08/2020 Moderna SARS-COV-2 01/26/2021,12/29/2020 Pfizer SARS-COV-2 01/24/2022,09/28/2021 Pneumococcal Polysaccharide 07/22/2020 Shingrix 04/19/2022,01/24/2022 Tdap 09/28/2021,01/04/2020 Family History Medical History Relation Comments Cancer Brother Diabetes Brother Hypertension Brother Diabetes Mother Hypertension Mother Relation Status Comments Brother Mother Social History Tobacco Use Types Packs/Day Years Used Date Smoking Tobacco: Never Smokeless Tobacco: Never Tobacco Cessation:Counseling Given: Not Answered Alcohol Use Standard Drinks/Week Comments Never 0 (1 standard drink = 0.6 oz pur e alcohol) Comments Unknown Sex and Gender Information Value Date Recorded Sex Assigned at Not on file Legal Sex Female 2:56 PM EDT Gender Identity Not on file Sexual Orientation Not on file Last Filed Vital Signs Vital Sign Reading Time Taken Comments Blood Pressure 110/64 03/12/2024 1:16 PM EDT Pulse 78 03/12/2024 1:16 PM EDT Temperature - - Respiratory Rate - - Oxygen Saturation 99% 03/12/2024 1:16 PM EDT Inhaled Oxygen Concentration - - Weight 104 kg (230 lb) 03/12/2024 1:16 PM EDT Height 175.3 cm (5' 9 ) 06/07/2021 9:16 AM EDT Body Mass Index 33.97 06/07/2021 9:16 AM EDT Plan of Treatment Upcoming Encounters Date Type Department Care Team (Late st Contact Info) Description 03/25/2025 1:00 PM EDT Office Visit [facility] [address] [phone] Castro Bailey MD [address] [address] Health Maintenance Due Date Last Done Comments Breast Cancer Screening 1960 Colorectal Cancer Screening: Annual FOBT 2011 Colorectal Cancer Screening: Colonoscopy 2011 Colorectal Cancer Screening: Sigmoidoscopy 2011 Influenza Vaccine (#1) 2024 3, 06/06/2022, 06/06/2022, Additional history exists Pneumococcal Vaccine: Pediatrics (0 to 5 Years) and At-Risk Patients (6 to 64 Years) Completed 05/24/2023, 07/22/2020 Hepatitis B Vaccine Aged Out No longe r eligible based on patient's age to complete this topic [place] Care Teams Rug Cleaner Relationship Specialty Start Date End Date Pawan Chavez FNP [address] [place] [address] PCP - General Nurse Practitioner 02/01/21
--- OUTSIDE RECORDS SUMMARY | 2024-11-05 16:39 | XMS_ITS | Clinical Summary ---
Author Organization [facility] Address [address] [place] [address] Care Team Providers Care Leather Toggler Name Role Phone Radha Chavez NP Primary Care Provider [phone]- [phone] Immunizations Name Administration Dates Next Due Moderna SARS-CoV-2 COVID-19, mRNA, LNP-S, preservative free 01/26/2021,12/29/2020 Pfizer SARS-CoV-2 COVID-19, mRNA, LNP-S, preservative free 01/24/2022,09/28/2021 Surgical History Surgery Date Site/Laterality Comments COLONOSCOPY PROCEDURE: HISTORICAL COLONOSCOPY ESOPHAGOGASTRODUODENOSCOPY PROCEDURE: [facility] EGD TRANSORAL BIOPSY SINGLE/MULTIPLE; COMMENT: Performed with colonoscopy in [place] about a year ago ESOPHAGOGASTRODUODENOSCOPY 01/11/2021 PROCEDURE: VA ESOPHAGOGASTRODUODENOSCOPY TRANSORAL DIAGNOSTIC; COMMENT: Large amount of food in the stomach, otherwise normal, antral biopsies obtained: Normal. Medical History Medical History Date Comments Esophageal reflux DX:Esophageal reflux Epigastric pain DX:Epigastric pa in Retained food in stomach DX:Gisela ined food in stomach Dysphagia DX:Dysphagia Gastritis DX:Gastritis Constipation DX:Constipation Family history of colon cancer D X:Family history of colon cancer; COMMENT: Older sister Irritable bowel syndrome DX:Irri table bowel syndrome Gastroparesis DX:Gastroparesis HTN (hypertension) 11/01/2023 DX:HTN (hyper tension) HLD (hyperlipidemia) 11/01/2023 DX:HLD (hyp erlipidemia) Polypharmacy DX:Polypharmacy Toxic encephalopathy DX:Toxic en cephalopathy Constipation DX:Constipation Social History Tobacco Use Types Packs/Day Years Used Date Smoking Tobacco: Never Smokeless Tobacco: Never Alcohol Use Standard Drinks/Week Comments Never 0 (1 standard drink = 0.6 oz pur e alcohol) Comments Unknown Sex and Gender Information Value Date Recorded Sex Assigned at Not on file Legal Sex Female 1:00 PM EST Gender Identity Not on file Sexual Orientation Not on file Obstetrics History Last Filed Vital Signs Vital Sign Reading Time Taken Comments Blood Pressure 124/80 04/02/2024 1:25 PM EDT Sitting L Arm Pulse 60 04/02/2024 1:25 PM EDT Temperature - - Respiratory Rate - - Oxygen Saturation - - Inhaled Oxygen Concentration - - Weight 107 kg (235 lb 3.2 oz) 1:25 PM EDT Height 175.3 cm (5' 9 ) 04/02/2024 1:25 PM EDT Body Mass Index 34.73 04/02/2024 1:25 PM EDT Plan of Treatment Health Maintenance Due Date Last Done Comments DTaP,Tdap,and Td Vaccines (1 - Tdap) 1981 Cervical Cancer Screening: Pap Smear 1983 Pneumococcal Vaccine: 50+ Years (1 of 1 - PCV) 2012 Zoster Vaccines (1 of 2) 2012 Cholesterol Screening (Lipid Panel) 08/08/2022 HIV Screening 08/08/2022 Hepatitis C Screening 08/08/2022 Social Influencers of Health Screening 08/08/2022 Hypertension/CHF/CAD Annual BMP Blood Test 04/03/2024 COVID-19 Vaccine ( season) 2024 01/24/2022, 09/28/2021, 01/26/2021, Additional history exists Influenza Vaccine (#1) 2024 Depression Screening 11/06/2024 11/06/2023 Breast Cancer Screening 06/20/2026 06/20/20, 06/19/2023, 06/14/2022, Additional history exists Colorectal Cancer Screening: Colonoscopy 08/08/2026 RSV Immunization Patients 60+ Years Old (1 - 1-dose 75+ series) 2037 HIB Vaccines Aged Out No longer eligi ble based on patient's age to complete this topic HPV Vaccines Aged Out No longer eligi ble based on patient's age to complete this topic Hepatitis A Vaccines Aged Out No long er eligible based on patient's age to complete this topic Hepatitis B Vaccines Aged Out No long er eligible based on patient's age to complete this topic IPV Vaccines Aged Out No longer eligi ble based on patient's age to complete this topic MMR Vaccines Aged Out No longer eligi ble based on patient's age to complete this topic Meningococcal ACWY Vaccine Aged Out N o longer eligible based on patient's age to complete this topic Meningococcal B Vacine Aged Out No lo nger eligible based on patient's age to complete this topic Pneumococcal Vaccine: Pediatrics (0 to 5 Years) and At-Risk Patients (6 to 64 Years) Aged Out No longer eligible based on patient's age to complete this topic RSV Immunization Patients Under 20 months Aged Out No longer eligible based on patient's age to complete this topic Varicella Vaccines Aged Out No longer eligible based on patient's age to complete this topic Procedures Procedure Name Priority Date/Time Associated Diagnosis Comments [facility] SCREENING DIGITAL Routine 06/20/2024 11:31 AM EDT Encounter for screening mammogram for malignant neoplasm of breast from Last 3 Months or Most Recently Relevant to Health Maintenance Results * [facility] SCREENING [facility] (06/20/2024 11:31 AM EDT) Anatomical Region Laterality Modality Mammography 06/20/2024 11:0 2 AM EDT Narrative 06/20/2024 11:31 AM EDT [facility] Diagnostic Imaging Department [address] [place] [address] [id number] Patient: ??ANIBAL ELIZABETH ?/Age/Sex: 1960 - 63 - F Unit#: ??[id number] ? Location/Status: ??SPDIMAM/REG CLI ? Mnemonic/Ordering Site: ??DIGSC/SPMAM Ordering Physician: ??YAJAIRARADHA OLIVE KNOCKER Vandana Screening Digital - 06/20/24 - 1120 Report Status:Signed HISTORY: The patient is a 63-year-old female presenting for routine screening mammography. ??The patient has a family history of breast cancer involving a sister, age not specified. FINDINGS: ??Full-field digital mammography of the breasts bilaterally consisting of tomosynthesis in MLO and CC projection is performed in the [employer] 2000-D unit. ??Computer aided detection utilizing the MondayOne PropertiesD system was utilized. The breasts are again seen to be largely fatty-replaced (the breasts are almost entirely fatty, category A density as calculated with Beaker Volpara software), as also demonstrated on prior studies most recently 06/18/2023 most remotely 05/04/2021. ??There is no cluster of microcalcifications, mass, or area of architectural distortion. There is no skin thickening or nipple retraction. IMPRESSION: No mammographic evidence of malignancy. A negative mammogram in the presence of a clinically suspicious palpable abnormality does not preclude the possibility of malignancy or alter the indications for biopsy. BIRADS Code Class 1: ??Negative PQRI CPT II 3341F Code 41549, 82951 PQRI 225 CPT II 7025F Dictating Physician: ??ANY HARRISON MD Electronically Signed by: ??ANY HARRISON MD Dic Date/Time: ??06/20/24 1128 Sign date/Time: ??06/20/24 1131 Procedure Note Any Harrison MD - 07/08/2024 [facility] Diagnostic Imaging Department [address] [place], [place] [id number] Patient: ANIBAL ELIZABETH /Age/Sex: 1960 - 63 - F Unit#: [id number] Location/Status: SPDIMAM/REG CLI Mnemonic/Ordering Site: [facility]AL/[facility] Ordering Physician: RADHA CHAVEZ OLIVE KNOCKER Vandana Screening Digital - 06/20/241120 Report Status:Signed HISTORY: The patient is a 63-year-old female presenting for routinescreening mammography. The patient has a family history of breast cancer involvinga sister, age not specified. FINDINGS: Full-field digital mammography of the breasts bilaterallyconsisting of tomosynthesis in MLO and CC projection is performed in the [employer]e 2000-D unit. Computer aided detection utilizing the iCAD system wasutilized. The breasts are again seen to be largely fatty-replaced (the breasts arealmost entirely fatty, category A density as calculated with iReveal Volparasoftware), as also demonstrated on prior studies most recently 06/18/2023 mostremotely 05/04/2021. There is no cluster of microcalcifications, mass, or area of architectural distortion. There is no skin thickening or nippleretraction. IMPRESSION: No mammographic evidence of malignancy. A negative mammogram in the presence of a clinically suspicious palpable abnormality does not preclude the possibility of malignancy or alter the indications for biopsy. BIRADS Code Class 1: Negative PQRI CPT II 3341F Code 34580, 27552 PQRI 225 CPT II 7025F Dictating Physician: ANY HARRISON MD Electronically Signed by: ANY HARRISON MD Dic Date/Time: 06/20/24 1128 Sign date/Time: 06/20/24 1131 us Radha Chavez OLIVE KNOCKER IMG BI PROCEDURES Final Re sult from Last 3 Months or Most Recently Relevant to Health Maintenance Care Teams Leather Toggler Relationship Specialty Start Date End Date Radha Chavez NP PCP - General 02/23/23
--- OUTSIDE RECORDS SUMMARY | 2024-11-05 16:39 | XMS_ITS | Encounter Summary ---
Author Organization [facility] Address [address] [place] [address] Care Team Providers Care Eight Section Blower Name Role Phone Pawan Chavez Primary Care Provider [phone] [phone] Reason for Visit * Reason Comments Care Coordination Encounter Details Date Type Department Care Team ([facility] Contact Info) Description 11/03/2024 Interim Notes [id number] [place] [phone] Andra Purcell [address] [place] [address] Social History Tobacco Use Types Packs/Day Years Used Date Smoking Tobacco: Never Smokeless Tobacco: Never Alcohol Use Standard Drinks/Week Comments Not Currently [...] file Not on file Not on file documented as of this encounter Progress Notes * Andra Purcell - 11/03/2024 8:54 AM EST Patient identified through ADT feed. Patient admitted 10/31/24 and discharged 10/31/24 from [facility]. Assigned to Amaya HUGHES and Yanet JOHNSON. documented in this encounter Plan of Treatment Upcoming Encounters Date Type Department Care Team (Late st Contact Info) Description 11/27/2024 10:40 AM EDT Office Visit [address] [address] Pawan Chavez FNP [address] [place] [address] documented as of this encounter Visit Diagnoses Not on filedocumented in this encounter Additional Health Concerns Assessment Noted Time PHQ-9 Depression Total Score: 7 11/06/19 24 2:14 PM PST documented as of this encounter Care Teams Eight Section Blower Relationship Specialty Start Date End Date Pawan Chavez FNP [address] [place] [address] PCP - General 06/22/20 documented as of this encounter
--- OUTSIDE RECORDS SUMMARY | 2024-11-05 16:39 | XMS_ITS | Encounter Summary ---
Author Organization [facility] Address [address] [place] [address] Care Team Providers Care Dehydrator Name Role Phone Pawan Chavez Primary Care Provider [phone] [phone] Reason for Visit * Reason Comments Case Management C3/CM Care Managemen t Chart Review Encounter Details Date Type Department Care Team ([facility] st Contact Info) Description 11/03/2024 Interim Notes [facility] Main [address] [place] [phone] Amaya Cat RN [address] [place] [address] Social History Tobacco Use Types Packs/Day Years [...] as of this encounter Progress Notes * Amaya Cat RN - 11/03/2024 9:55 AM EST LORI Cat RN, performed chart review, in anticipation of initial assessment with patient, as patient has stratified for C3 Adult Complex Care through the ADT feed. History significant for hypertension, mild intermittent asthma w/o complication, PTSD, FERNIE, MDD, superficial gastritis w/o hemorrhage, Adjustment disorder w/mixed disturbance of emotions and conduct, lumbar disc prolapse w/ root compression. Specialists include [facility], [facility] at [facility]. ED visits within the [email or web address] months include 04/17/24, 11/23/23. Patient recently admitted to [facility] ED on 10/31/24 with transfer to [facility] ED on 10/31/24. Last appointment in PCP office on 08/02/24. No next appointment s cheduled at this time. documented in this encounter Plan of Treatment Upcoming Encounters Date Type Department Care Team (Late st Contact Info) Description 11/27/2024 10:40 AM EDT Office Visit [facility] [address] [place] [phone] Pawan Chavez FNP [address] [place] [address] documented as of this encounter Visit Diagnoses Not on filedocumented in this encounter Additional Health Concerns Assessment Noted Time PHQ-9 Depression Total Score: 7 11/06/19 24 2:14 PM PST documented as of this encounter Care Teams Dehydrator Relationship Specialty Start Date End Date Pawan Chavez FNP [address] [place] [address] PCP - General 06/22/20 documented as of this encounter
== END 2024-11-05 13:56 | disposition home or self-care (01) ==
PROVIDERS: Visit Provider Physician Assistant
DX: M50.90 Cervical disc disorder, unspecified, unspecified cervical region (principal)
CPT/HCPCS: 99024

== ENCOUNTER → 2024-11-05 13:32 | Outpatient (BNVA) | payer MEDICAID, SELFPAY | PROVIDERS: Visit Provider Physician Assistant | DX: Z48.89 Encounter for other specified surgical aftercare (principal) | CPT/HCPCS: 99212 ==

== ENCOUNTER 2024-12-17 12:55 | Outpatient (AMB) | payer MEDICAID, SELFPAY ==
--- NOTE | 2024-12-17 13:00 | A.SPINEOV_ITS ---
Intake Visit Reasons: 2nd post op with x-rays Intake Note: Ms. Seals is here today for her 2nd post op with x-rays. General Internist Required: Yes General Internist Services: General Internist Present General Internist Name: Nina Bai Allergies No Known Allergies Allergy (Verified 12/17/24 13:34) Assessment & Plan Assessment & Plan (1) S/P cervical spinal fusion: Code(s): Z98.1 - Arthrodesis status Category: Surgical Plan Procedure: C6-7, C7-T1 ACDF Elma comes in today for her second postoperative visit after having C6-T1 ACDF completed by Dr. Ojeda on 10/15/24. She reports that she has continued to do well since she last saw us. In terms of her surgery and the pain she had prior to surgery she has significantly improved. Unfortunately, she has remained a bit excessive with her activity, and was most recently standing up on a chair cleaning some windows and fell onto her left shoulder. Her left shoulder has been causing her quite a bit of discomfort since then. She was recently started on tramadol to help control the pain in the shoulder. We reviewed her x-ray imaging during this visit which shows stable placement of the surgical constructs with no changes from fluoroscopy. No new neurological deficits. The patient ambulates well and rises from a seated position without difficulty. Her anterior incision site is closed and well healed. There is no need for continued routine follow up with Elma, she may be d ischarged as a patient. Akira Ojeda MD,PhD [facility] Orders: Orders XR cervical spine 4V Today M50.90 - Cervical disc disorder, unspecified, unspecified cervical region Coding Level of Care Code Global (94595) Diagnoses S/P cervical spinal fusion Z98.1
== END 2024-12-17 14:21 | disposition home or self-care (01) ==
LOC: HO.HNS 12:56
PROVIDERS: Visit Provider Physician Assistant
DX: Z98.1 Arthrodesis status (principal)
CPT/HCPCS: 99024

== ENCOUNTER 2024-12-17 12:55 | Outpatient (REF) | payer MEDICAID, SELFPAY ==
--- NOTE | ~2024-12-17 | XR_ITS ---
EXAMINATION: XR CERVICAL SPINE CLINICAL INFORMATION: M50.90 - Cervical disc disorder, unspecified, unspecified cervical region COMPARISON: July 04, 2024. TECHNIQUE: 6 views of the cervical spine, inclusive of flexion and extension views, were obtained. FINDINGS: Metallic hardware placed in the posterior elements of the cervical spine from the C3-C6 levels. Intervertebral disc spacers at C6-7 and C7-T1. No gross malalignment in neutral position nor flexion and/or extension. Craniocervical junction is intact. Upper airways patent. Edentulous, maxilla. XR/XR cervical spine 4V IMPRESSION: New intervertebral disc spacer placement C6-7 and C7-T1. Stable posterior cervical fusion C3 C6. No gross instability. Electronically signed by: Damien Wells MD 12/18/2024 07:16 AM EDT
--- OUTSIDE RECORDS SUMMARY | 2024-12-17 14:57 | XMS_ITS | Clinical Summary ---
Author Organization [facility] Address [address] [place] [address] Care Team Providers Care Pie Topper Name Role Phone Pawan Chavez Primary Care Provider [phone] Source Comments PLEASE NOTE, if this patient is a minor, it may be UNLAWFUL to discuss sensitive information that is contained in these records (such as FAMILY PLANNING, MENTAL HEALTH or SUBSTANCE ABUSE) with the minor patient's parent or other person without the patient's specific authorization.[facility] Allergies No known active allergies Medications nebulizer and compressorIndicat ions:Moderate persistent asthma, unspecified whether complicated ([facility]) Use with nebulizer solution Diag: J45.40 1 Each 01/16/20 20 Active caneIndications: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, unspecified back pain laterality,Chroni c pain of both knees,Rib pain on left side Use daily 1 Each 06/23/20 20 Active blood pressure monitorIndication s:Essential hypertension Use daily and prn 1 Kit 06/23/20 20 Active walkerIndications :Chronic pain of both knees,Neck pain,Chronic low back pain with bilateral sciatica, unspecified back pain laterality,Rib pain on left side Rolling walker with seat, use daily x 99 years 1 Each 06/15/20 21 Active miscellaneous medical supply miscIndications: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, unspecified back pain laterality,Lumbar disc prolapse with root compression,Frequ ent falls,Compressed cervical disc by miscellaneous route once daily Tub bench x99 years 1 Each 01/27/20 22 Active miscellaneous medical supply miscIndications: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, unspecified back pain laterality,Lumbar disc prolapse with root compression,Frequ ent falls,Compressed cervical disc by miscellaneous route once daily 4 wheeled walker with seat to be used daily x99 years 1 Each 01/27/20 22 Active miscellaneous medical supply miscIndications: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, unspecified back pain laterality,Lumbar disc prolapse with root compression,Frequ ent falls,Compressed cervical disc by miscellaneous route once daily Over toilet commode to be used daily x99 years 1 Each 01/27/20 22 Active miscellaneous medical supply miscIndications:L eg swelling by miscellaneous route daily Compression stockings 15-20mmHg use daily x99 years 2 Each 1 05/05/20 22 Active FLUoxetine (PROZAC) 40 mg capsule Take 2 capsules by mouth every morning. Prescribed by Dr. Babs Lentz (psych). 09/05/20 23 Active hydrOXYzine pamoate (VISTARIL) 50 mg capsule Take 1 capsule by mouth three times daily as needed for anxiety or insomnia. May take 1 tablet at bedtime if needed. Prescribed by Dr. Babs Lentz (psych). 09/05/20 23 Active buPROPion XL (WELLBUTRIN XL) 150 mg 24 hr tablet Take 1 tablet by mouth every morning. Prescribed by Dr. Babs Lentz (psych). 09/05/20 23 Active acetaminophen (TYLENOL) 500 mg tabletIndications :Edema, unspecified type,Moderate persistent asthmatic bronchitis with acute exacerbation ([facility]),Chronic pain of both knees,Neck pain,Chronic low back pain with bilateral sciatica, unspecified back pain laterality,Rib pain on left side,Essential (primary) hypertension Take 1 Tablet by mouth every 6 (six) hours as needed for pain 60 Tablet 2 09/07/20 23 Active naloxone (NARCAN) 4 mg/actuation nasal spray UAD 1 Each 1 09/07/20 23 Active LORazepam (ATIVAN) 0.5 mg tablet Take 1 tablet (0.5 mg) by mouth twice daily as needed. Prescribed by Dr. Babs Lentz (psych). 90 Tablet 1 12/21/19 24 Active lidocaine (LIDODERM) 5 % patchIndications: Chronic low back pain with bilateral sciatica, unspecified back pain laterality APLICAR 1 PARCHO AL AREA AFECTADO. DEJAR POR 12 HORAS Y REMOVER POR 12 HORAS. REPETIR CADA LAURA. 30 Patch 3 12/21/19 24 Active LINZESS 145 mcg cap [place], [place] [phone] 30 Each 11 30 Source: Surescripts (Fill History, Ambulatory)Autho rized by: FANY RESENDIZ 02/13/20 24 Active ADVANCED ANTACID-ANTIGAS 200-200-20 mg/5 mL suspension [place], [place] [phone] 1680 mL 11 28 Source: Surescripts (Fill History, Ambulatory)Autho rized by: FANY RESENDIZ 02/13/20 24 Active fluticasone furoate-vilantero L (BREO ELLIPTA) 200-25 mcg/doseIndicatio ns:Mild intermittent asthma without complication ([facility]-HCC) Inhale 1 Puff into the lungs daily (Rinse mouth following use) stop Advair 60 Each 3 03/11/20 24 Active albuterol HFA 90 mcg/actuation inhalerIndication s:Mild intermittent asthma without complication ([facility]-HCC) Inhale 2 Puffs into the lungs every 4 (four) hours as needed for shortness of breath 18 g 1 03/11/20 24 Active traZODone (DESYREL) 100 mg tablet EVANGELINA 1 COMPRIMIDO POR LA BOCA DIARIO A LA HORA DE DORMIR. Prescribed by Dr. Babs Lentz (psych). 90 Tablet 05/13/20 24 Active atorvastatin (LIPITOR) 40 mg tabletIndications :Essential (primary) hypertension,Mixe d hyperlipidemia Take 1 Tablet by mouth once daily 90 Tablet 1 06/17/20 24 Active semaglutide (OZEMPIC) 0.25 mg or 0.5 mg(2 mg/1.5 mL) pen injectorIndicatio ns:Class 2 obesity due to excess calories without serious comorbidity with body mass index (BMI) of 38.0 to 38.9 in adult Take 0.25mg weekly for 4 weeks followed by 0.5mg weekly for 4 weeks 1.5 mL 1 06/27/20 24 Active esomeprazole (NEXIUM) [address] capsule Take 40 mg by mouth Active cyclobenzaprine (FLEXERIL) 5 mg tabletIndications :Lumbar disc prolapse with root compression Take 1 Tablet by mouth 3 (three) times daily as needed for muscle spasms 60 Tablet 1 06/27/20 24 Active loratadine (CLARITIN) 10 mg tabletIndications :Postnasal drip Take 1 Tablet by mouth once daily as needed for allergies 90 Tablet 2 07/07/20 24 Active famotidine (PEPCID) 20 mg tabletIndications :Gastroesophageal reflux disease, unspecified whether esophagitis present Take 1 Tablet by mouth 2 (two) times daily 180 Tablet 08/02/20 24 Active amLODIPine (NORVASC) 5 mg tabletIndications :Essential (primary) hypertension TAKE ONE TABLET BY MOUTH EVERY DAY 90 Tablet 11/04/19 25 Active gabapentin (NEURONTIN) 300 mg capsule [place] 2 capsulas por via oral 3 (ciro) veces al Laura 180 Capsule 3 11/06/19 25 Active benztropine (COGENTIN) 0.5 mg tablet Take 1 Tablet by mouth 2 (two) times daily (Prescribed by Dr. Babs Lipscomb) 60 Tablet 11/20/19 25 Active ziprasidone HCL (GEODON) 60 mg capsule Take 1 Capsule by mouth 2 (two) times daily with a meal 60 Capsule 11/20/19 25 Active mirtazapine (REMERON) 30 mg tablet Take 1 Tablet by mouth nightly at bedtime (Prescribed by Nelson Lipscomb) 30 Tablet 11/20/19 25 Active furosemide (LASIX) 20 mg tabletIndications :Edema, unspecified type [place] 1 tableta por vIa oral jorge vez al Laura 30 Tablet 11/20/19 25 Active buPROPion HCL (WELLBUTRIN XL) 300 mg 24 hr tablet Take 1 tablet by mouth every morning. Prescribed by Dr. Babs Lentz (psych) 30 Tablet 11/20/19 25 Active montelukast (SINGULAIR) 10 mg tabletIndications :Moderate persistent asthmatic bronchitis with acute exacerbation ([facility]-HCC) Take 1 Tablet by mouth nightly at bedtime 30 Tablet 11/20/19 25 Active prazosin (MINIPRESS) 1 mg capsule Take 1 Capsule by mouth nightly at bedtime 30 Capsule 11/20/19 25 Active ibuprofen 800 mg tablet Take 1 Tablet by mouth 3 (three) times daily as needed for pain 30 Tablet 1 11/21/19 25 Active lumateperone (CAPLYTA) 42 mg cap Take 42 mg by mouth daily 30 Capsule 11/21/19 25 Active traMADoL (ULTRAM) 50 mg tabletIndications :Lumbar disc prolapse with root compression Take 1 Tablet by mouth 3 (three) times daily as needed for pain 30 Tablet 1 11/28/19 25 Active diclofenac sodium (VOLTAREN) 1 % gelIndications:Ch ronic low back pain with bilateral sciatica, unspecified back pain laterality,Chroni c pain of both knees Apply topically 3 (three) times daily Apply 4 gm to knees, back, neck 100 g 3 11/28/19 25 Active tirzepatide, weight loss, (ZEPBOUND) 2.5 mg/0.5 mL pnij Inject 2.5 mg into the skin once a week 2 mL 12/01/19 25 Active tirzepatide, weight loss, (ZEPBOUND) 5 mg/0.5 mL pnij Inject 5 mg into the skin once a week 2 mL 2 12/01/19 25 Active diclofenac sodium (VOLTAREN) 1 % gelIndications:Ch ronic low back pain with bilateral sciatica, unspecified back pain laterality,Chroni c pain of both knees Apply topically 3 (three) times daily Apply 4 gm to knees, back, neck 100 g 3 02/22/20 23 025 Discontin ued(Reord er (E-Cancel Not Sent)) diclofenac sodium (VOLTAREN) [address] tabletIndications :Lumbar disc prolapse with root compression TAKE ONE TABLET BY MOUTH TWICE DAILY 60 Tablet 1 11/09/19 25 025 Discontin ued(Cance lled) semaglutide (OZEMPIC) 1 mg/dose (4 mg/3 mL) pen injectorIndicatio ns:Class 2 obesity due to excess calories without serious comorbidity with body mass index (BMI) of 38.0 to 38.9 in adult Inject 1 mg into the skin once a week After 0.25 and 0.5mg titration 3 mL 11/20/19 25 025 Discontin ued(Denie d by Insurance ) Active Problems Problem Noted Date Diagnosed Date MDD (major depressive disorder) 05/14/2024 Overview (05/14/2024): 05/07/24 Psych inpatient admission for self harm via [facility] Class 2 obesity due to exces s calories without serious comorbidity with body mass index (BMI) of 36.0 to 36.9 in adult 05/25/2023 Microscopic hematuria 07/17/2022 Overview (07/17/2022): July 2022: Urology workup stable, they will repeat CT imaging in one year Abnormal mammogram 06/07/2022 Overview (06/07/2022): [facility] November 2021 Attempted suicide ([facility]) 06/06/2022 FERNIE (obstructive sleep apnea) 06/06/2022 Overview (11/27/2024): November 2024- has CPAP but does not know how to use it and is at risk of losing the machine if she does not get educated April 2022: CPAP ordered by sleep medicine but pt has not received it Prediabetes 06/06/2022 Gastroparesis 05/11/2021 Lumbar disc prolapse with root compression 05/11 Compressed cervical disc 05/11/2021 Essential hypertension 01/15/2020 Overview (01/15/2020): Per [facility] History and physical on 01/06/2020 Moderate persistent asthma without complication ([facility]) 01/15/2020 Overview (01/15/2020): Per [facility] History and physical 01/04/2020 Superficial gastritis without hemorrhage 020 Post traumatic stress disorder 01/15/2020 Overview (01/15/2020): Per [facility] 01/04/2020 Adjustment disorder with mix ed disturbance of emotions and conduct 01/15/2020 Overview (06/06/2022): May 2022: Follows JHOAN Lipscomb Per [facility] 01/04/2020 Encounters Date Type Department Care Team Description 12/09/2024 Interim Notes [id number] [place] [address] Rika George [place] 11/28/2024 Interim Notes [address] [phone] Amaya Cat RN 11/27/2024 10:40 AM EDT Office Visit [address] [phone] Pawan Chavez, DAIRY GRAZER Lumbar disc prolapse with root compression (Primary Dx); Class 1 obesity due to excess calories with body mass index (BMI) of 32.0 to 32.9 in adult, unspecified whether serious comorbidity present; Moderate persistent asthma without complication; Severe episode of recurrent major depressive disorder, with psychotic features ([facility]); Essential hypertension; FERNIE (obstructive sleep apnea); Left shoulder pain, unspecified chronicity; Frequent falls; Chronic low back pain with bilateral sciatica, unspecified back pain laterality; Chronic pain of both knees; Intestinal obstruction, unspecified cause, unspecified whether partial or complete ([facility]) 11/26/2024 Interim Notes [address] [phone] Andra Purcell 11/20/2024 9:40 AM EDT Office Visit [address] [phone] Castro Stein MD [place], [place] Injury of right shoulder, subsequent encounter (Primary Dx); Fall, subsequent encounter 11/13/2024 Interim Notes [address] [phone] Amaya Cat RN 11/12/2024 Interim Notes [address] [phone] Andra Purcell 11/07/2024 Interim Notes [address] [phone] Yanet Schumacher, Community Health Worker 11/03/2024 Interim Notes [address] [phone] Amaya Cat RN 11/03/2024 Interim Notes [address] [phone] Andra Purcell from Last 3 Months Immunizations Immunization Administration Dates Next Due Flu, Preservative Free 05/24/2023,2021,09/28/2021,07/22 Influenza (FLUBLOK),recombinant,injectable,prese rvative Free 06/27/2024 Moderna COVID-19 Vaccine, re d cap blue label, 12+ Primary Series 01/26/2021,12/29/2020 PFIZER COVID VACCINE, PURPLE CAP, 12+ 01/24/2022 ,09/28/2021 PNEUMOCOCCAL CONJUGATE PCV 2 0 (Prevnar) 05/24/2023 PNEUMOCOCCAL POLYSACCHARIDE PPV23 07/22/2020 Pfizer COVID-19 (Comirnaty), Mrna, Lnp-s, Pf, Kenny-sucrose, 30 Mcg/0.3 Ml, 12yr+ 06/27/2024 TDAP 09/28/2021,01/04/2020 ZOSTER VACCINE, RECOMBINANT (SHINGRIX) ,01/24/2022 Family History Medical History Relation Name Comments [...] Sign Reading Time Taken Comments Blood Pressure 119/70 11/27/2024 10:20 AM EDT Pulse 68 11/27/2024 10:20 AM EDT Temperature 36.7 ??C (98 ??F) 11/27/2024 10:20 AM EDT Respiratory Rate 18 11/27/2024 10:20 AM EDT Oxygen Saturation 98% 11/06/2023 2:14 PM EST Inhaled Oxygen Concentration - - Weight 99.1 kg (218 lb 6.4 oz) 11/27/2024 10:20 AM EDT Height 175.3 cm (5' 9 ) 11/27/2024 10:20 AM EDT Body Mass Index 32.25 11/27/2024 10:20 AM EDT Plan of Treatment Upcoming Encounters Date Type Department Care Team (Late st Contact Info) Description 02/05/2025 9:00 AM EDT Office Visit [facility] [address] [place] [address] Pawan Chavez FNP [address] [place] [address] Health Maintenance Due Date Last Done Comments Anxiety Screening [address] Colonography 2007 FIT/gFOBT [...] 07/09/2022, 07/05/2022, Additional history exists Tobacco Screening 11/19/2025 11/19/2024, 11/19/2020 Pap Smear 02/08/2026 02/08/2023 Colonoscopy 08/03/2026 08/03/2021 Colorectal Cancer Screening 08/03/2026 Cervical Cancer Screening 02/09/2028 Pap + HPV 02/09/2028 02/08/2023 Imm-DTaP/Tdap/Td (3 - Td or Tdap) 09/28/2031 022, 01/04/2020 HIV Screening Completed 05/28/2020 Hepatitis C Screening Completed 05/28/2020 Imm-Zoster, Recombinant Completed 04/19/2022, 01/24 Imm-Pneumococcal Completed 05/24/2023, 07/22/2020 [id number] Completed 06/27/2024, 01/08, 09/28/2021, Additional history exists Imm-Influenza Completed 06/27/2024, 05/11, 06/06/2022, Additional history exists Cervical Ablation/Cold-Knife Conization Discontinued Cervical Cryotherapy Discontinued Colposcopy Discontinued Endometrial Biopsy Discontinued Excision/Leep Discontinued HPV Genotyping Discontinued Vaginal Pap Discontinued Vulvoscopy Discontinued Procedures Procedure Name Priority Date/Time Associated Diagnosis Comments MEDICATIONS SCANNED DOCUMENT 12/01/2024 3:00 AM EDT OTHER ORDERS SCANNED DOCUMENT 12/01/2024 3:00 AM EDT OTHER ORDERS SCANNED DOCUMENT 11/10/2024 3:00 AM EST HEMOGLOBIN GLYCOSYLATED A1C Routine 06/27/2024 10:07 AM [...] Recently Relevant to Health Maintenance Results * MEDICATIONS SCANNED DOCUMENT (12/01/2024 3:00 AM EDT) 12/01/2024 3:00 AM EDT [facility] [employer] DAIRY GRAZER SCAN MEDS OTHER ORDERS Fi nal Result * OTHER ORDERS SCANNED DOCUMENT (12/01/2024 3:00 AM EDT) Only the most recent of2 resultswithin the time period is included. 12/01/2024 3:00 AM EDT [facility] [employer] DAIRY GRAZER SCAN OTHER ORDERS Final R esult * (ABNORMAL) HEMOGLOBIN GLYCOSYLATED A1C (06/27/2024 10:07 AM EDT) HEMOGLOBIN A1C 6.2(H) <5.7 % of total Hgb [facility] Comment: For someone without known diabetes, a [...] 06/27/2024 10:08 AM EDT us Pawan Chavez DAIRY GRAZER LAB - BLOOD DRAW Edited R esult - Final [facility] [address] [address], [facility] [address] [place] [address] * LIPID PANEL (06/27/2024 10:07 AM EDT) [facility] CHOLESTEROL, TOTAL 134 <200 mg/dL [facility] HDL CHOLESTEROL 64 > OR = 50 mg/dL [facility] TRIGLYCERIDES 94 <150 mg/dL [facility] LDL-CHOLESTEROL 52 99 mg/dL (calc) [facility] Comment: Reference range: <100 Desirable range <100 mg/dL for primary prevention; ?? <70 mg/dL for patients with CHD or diabetic patients with > or = 2 CHD risk factors. LDL-C is now calculated using the Jeff-Bailey calculation, which is a validated novel method providing better accuracy than the Friedewald equation in the estimation of LDL-C. Jeff CORTEZ et al. LIVE. 2013;310(19): 7653-1023 (http://education.Intimate Bridge 2 Conception/faq/BOV972) CHOL/HDLC RATIO 2.1 <5.0 (calc) [facility] NON-HDL CHOLESTEROL 70 <130 mg/dL (calc) [facility] Comment: For patients with diabetes plus 1 major ASCVD risk factor, treating to a non-HDL-C goal of <100 mg/dL (LDL-C of <70 mg/dL) is considered a therapeutic option. Blood Blood / Unknown 06/27/2024 1 0:07 AM EDT 06/27/2024 10:08 AM EDT us Pawan Sotot DAIRY GRAZER LAB - BLOOD DRAW Final Re sult [facility] [address] [place] [address], [facility] [place] [facility] [address] [place] [id number] * HISTORIC MAMMOGRAM (06/20/2024 3:00 AM EDT) 06/20/2024 3:00 AM EDT Pawan Chavez DAIRY GRAZER IMG MAMMO Final Res ult * THINPREP PAP & HPV MRNA E6/E7 RFLX HPV 16,18/[address]/NG (02/08/2023 3:07 PM EDT) CHLAMYDIA TRACHOMATIS RNA, TMA NOT DETECTED NOT DETECTED [facility] NEISSERIA GONORRHOEAE RNA, TMA NOT DETECTED NOT DETECTED [facility] COMMENT [facility] CLINICAL INFORMATION See Note [facility] Comment:ROUTINE EXAM LMP See Note [facility] Comment:PM PREV. PAP See Note [facility] Comment:NONE GIVEN PREV. BX See Note [facility] Comment:NONE GIVEN SOURCE See Note [facility] Comment:Cervix STATEMENT OF ADEQUACY See Note [facility] Comment: Specimen processed and examined, but unsatisfactory for evaluation due to an insufficient number of squamous cells. INTERPRETATION/RESU LT See Note [facility] Comment: Unable to provide interpretation due to unsatisfactory specimen adequacy. DATABASES COMPUTER CONSULTANT See Note [facility] [employer] Comment: DCR, CT(ASCP) CT screening location: [address] ??[address] REVIEW DATABASES COMPUTER CONSULTANT See Note [facility] Comment: DMM, CT(ASCP) CT screening location: [address] ??[address] COMMENT [facility] HPV MRNA E6/E7 Not Detected Not Detected [facility] Comment: Methodology: Head Stock Transfer Clerk-Mediated Amplification This assay detects E6/E7 viral messenger RNA (mRNA) from 14 high-risk HPV types (16,18,31,33,35,39,45,51,52,56,58,59,66,68). Cervical sources are required for HPV testing. If a vaginal source from a patient who has had a total hysterectomy with removal of cervix was submitted, please contact the testing laboratory for alternative testing options. For additional information, please refer to http://[facility].scoo mobility/faq/DBL085h8 (This link if provided for information/ educational purposes only.) CYTOLOGY Cervix uteri structure / Unknown 02/08/2023 3:07 PM EDT 02/09/2023 6:55 AM EDT Narrative [facility] - 02/13/2023 1:51 PM [...] test SurePath(TM) specimens have been determined by [facility]. The modifications have not been cleared or approved by the FDA. This assay has been validated pursuant to the CLIA regulations and is used for clinical purposes. For additional information, please refer to [email or web address].scoo mobility/faq/WAV973 (This link is being provided for information/ educational purposes only.) Krista Lemus MD LAB - NO BLOOD DRAW Final Result [facility] [address] [address], [facility] [address] [address] * HISTORIC COLONOSCOPY (08/03/2021 3:00 AM EST) 08/03/2021 3:00 AM EST Pawan Chavez DAIRY GRAZER PROCEDURES Final Res ult * HEPATITIS C ANTIBODY (05/28/2020 8:57 AM EDT) Pathologist [facility] HEPATITIS C VIRUS SCREEN NEGATIVE NEGATIVE [facility] Blood specimen (specimen) Blood / Unknown 05/28/2020 8:57 AM EDT 05/28/2020 9:03 AM EDT [facility] - 05/28/2020 2:48 PM EDT [employer], a member of [address] [address] Continuous Drier Operator - Elma Jay MD PT ID [id number] ORD# [id number] Conrad Lacy FLUID DYNAMICIST LAB - BLOOD DRAW Final Result [address] [address], [place] [phone] * HIV-1 & HIV-2 ANTIBODIES (05/28/2020 8:57 AM EDT) [facility] HIV 1 AND 2 ANTIBODY SCREEN NEGATIVE NEGATIVE [facility] Comment: This assay is a 4th generation [...] 8:57 AM EDT 05/28/2020 9:03 AM EDT [facility] - 05/28/2020 2:48 PM EDT [employer], a member of [address] [address] Continuous Drier Operator - Elma Jay MD PT ID [id number] ORD# [id number] Conrad Lacy FLUID DYNAMICIST LAB - BLOOD DRAW Final Result [address] [address], [place] [phone] from Last 3 Months or Most Recently Relevant to Health Maintenance Insurance [facility] [address] [employer] Care Teams Pie Topper Relationship Specialty Start Date End Date Pawan Chavez FNP [address] [place] [address] PCP - General 06/22/20
--- OUTSIDE RECORDS SUMMARY | 2024-12-17 14:57 | XMS_ITS | Clinical Summary ---
Author Organization [facility] Address [address] [place] [address] Phone Care Team Providers Care Word Processing Machine Operator Name Role Phone Eryn Chavezor LILY Primary Care Provider [phone] Allergies No known active allergies Medications omeprazole [...] 04/11/2021 Essential hypertension 01/15/2020 Overview (02/08/2021): Per [facility] History and physical on 01/06/2020 Adjustment disorder with mix ed disturbance of emotions AND conduct 01/15/2020 Overview (01/17/2023): May 2022: Follows at [facility] Per [facility] 01/04/2020 Resolved Problems Problem Noted Date Diagnosed Date Resolved Date Uncomplicated mild intermittent asthma 04/11/2021 04/11/2021 Stage 3 chronic kidney disease 02/08/2021 07/05/2021 Posttraumatic stress disorder 01/15/2020 04/11/2021 Overview (02/08/2021): Per [facility] 01/04/2020 Immunizations Name Administration Dates Next [...] Visit [facility] [address] [address] Castro Bailey MD [address] [address] Health Maintenance Due Date Last Done Comments Breast Cancer Screening 1960 Colorectal Cancer Screening: Annual FOBT 2011 Colorectal Cancer Screening: Colonoscopy 2011 Colorectal Cancer Screening: Sigmoidoscopy 2011 Influenza Vaccine (Season Ended) 2025 05/24/2023, 06/06/2022, 06/06/2022, Additional history exists Pneumococcal Vaccine: Pediatrics (0 to 5 Years) and At-Risk Patients (6 to 64 Years) Completed 05/24/2023, 07/22/2020 Hepatitis B Vaccine Aged Out No longe r eligible based on patient's age to complete this topic [place] Care Teams Word Processing Machine Operator Relationship Specialty Start Date End Date Pawan Chavez FNP [address] [place] [address] PCP - General Nurse Practitioner 02/01/21
--- OUTSIDE RECORDS SUMMARY | 2024-12-17 14:57 | XMS_ITS | Clinical Summary ---
Author Organization [employer] [facility] Address [address] [place] [address] Care Team Providers Care Database Design Analyst Name Role Phone Radha Chavez NP Primary Care Provider [phone] Immunizations Name Administration Dates Next Due Moderna SARS-CoV-2 COVID-19, mRNA, LNP-S, preservative free 01/26/2021,12/29/2020 Pfizer SARS-CoV-2 COVID-19, mRNA, LNP-S, preservative free 01/24/2022,09/28/2021 Surgical History Surgery Date Site/Laterality Comments COLONOSCOPY PROCEDURE: HISTORICAL COLONOSCOPY ESOPHAGOGASTRODUODENOSCOPY PROCEDURE: NV EGD TRANSORAL BIOPSY SINGLE/MULTIPLE; COMMENT: Performed with colonoscopy in [place] about a year ago ESOPHAGOGASTRODUODENOSCOPY 01/11/2021 PROCEDURE: NV ESOPHAGOGASTRODUODENOSCOPY TRANSORAL DIAGNOSTIC; COMMENT: Large amount of [...] DTaP,Tdap,and Td Vaccines (1 - Tdap) 1981 Pneumococcal Vaccine: 50+ Years (1 of 2 - PCV) 1981 Pneumococcal Vaccine: Pediatrics (0 to 5 Years) and At-Risk Patients (6 to 64 Years) (1 of 2 - PCV) 1981 Cervical Cancer Screening: Pap Smear 1983 Zoster Vaccines (1 of 2) 2012 Cholesterol Screening (Lipid Panel) 08/08/2022 HIV Screening 08/08/2022 Hepatitis C Screening 08/08/2022 Social Influencers of Health Screening 08/08/2022 RSV Immunization Adult Patients (1 - Risk 60-74 years 1-dose series) 2022 Hypertension/CHF/CAD Annual BMP Blood Test 04/03/2024 COVID-19 Vaccine ( season) 2024 01/24/2022, 09/28/2021, 01/26/2021, Additional history exists Depression Screening 11/06/2024 11/06/2023 Influenza Vaccine (Season Ended) 2025 Breast Cancer Screening 06/20/2026 06/20/20, 06/19/2023, 06/14/2022, Additional history exists Colorectal Cancer Screening: Colonoscopy 08/08/2026 HIB Vaccines Aged Out No longer eligi [...] age to complete this topic Meningococcal B Vaccine Aged Out No l onger eligible based on patient's age to complete this topic RSV Immunization Patients Under 20 months Aged Out No longer eligible based on patient's age to complete this topic Varicella Vaccines Aged Out No longer eligible based on patient's age to complete this topic Procedures Procedure Name Priority Date/Time Associated Diagnosis Comments [facility] SCREENING DIGITAL Routine 06/20/2024 11:31 AM EDT Encounter for screening mammogram for malignant neoplasm of breast from Last 3 Months or Most Recently Relevant to Health Maintenance Results * [facility] SCREENING DIGITAL (06/20/2024 11:31 AM EDT) Anatomical Region Laterality Modality Mammography 06/20/2024 11:0 2 AM EDT Narrative 06/20/2024 11:31 AM EDT [facility] Diagnostic Imaging Department [address] [place], [place] [id number] Patient: ??ANIBAL ELIZABETH ?/Age/Sex: 1960 - 63 - F Unit#: ??[id number] ? Location/Status: ??SPDIMAM/REG CLI ? Mnemonic/Ordering Site: ??DIGSC/SPMAM Ordering Physician: ??YAJAIRARADHA BIOMET[employer] HEAD Vandana Screening Digital - 06/20/24 - 1120 Report Status:Signed HISTORY: The patient is a 63-year-old female presenting for routine screening mammography. ??The patient has a family history of breast cancer involving a sister, age not specified. FINDINGS: ??Full-field digital mammography of the breasts bilaterally consisting of tomosynthesis in MLO and CC projection is performed in the [employer] 2000-D unit. ??Computer aided detection utilizing the [employer] system was utilized. The breasts are again seen to be largely fatty-replaced (the breasts are almost entirely fatty, category A density as calculated with CU[employer] software), as also demonstrated on prior [...] 1: ??Negative PQRI CPT II 3341F Code 94636, 28257 PQRI 225 CPT II 7025F Dictating Physician: ??ANY HARRISON MD Electronically Signed by: ??ANY HARRISON MD Dic Date/Time: ??06/20/24 1128 Sign date/Time: ??06/20/24 1131 Procedure Note Any Harrison MD - 07/08/2024 [facility] Diagnostic Imaging Department [address] [place] [id number] Patient: ANIBAL ELIZABETH /Age/Sex: 1960 - 63 - F Unit#: [id number] Location/Status: [facility] CLI Mnemonic/Ordering Site: [facility] Ordering Physician: RADHA CHAVEZ BIOMETRICS HEAD Vandana Screening Digital - 06/20/24 - 112 Report Status:Signed HISTORY: The patient is a 63-year-old female presenting for routinescreening mammography. The patient has a family history of breast cancer involvinga sister, age not specified. FINDINGS: Full-field digital mammography of the breasts bilaterallyconsisting of tomosynthesis in MLO and CC projection is performed in the [employer] 2000-D unit. Computer aided detection utilizing the [...] 1: Negative PQRI CPT II 3341F Code 79564, 43703 PQRI 225 CPT II 7025F Dictating Physician: ANY HARRISON MD Electronically Signed by: ANY HARRISON MD Dic Date/Time: 06/20/24 1128 Sign date/Time: 06/20/24 1131 Radha Chavez NP IMG BI PROCEDURES Final Re sult from Last 3 Months or Most Recently Relevant to Health Maintenance Care Teams Database Design Analyst Relationship Specialty Start Date End Date Radha Chavez NP PCP - General 02/23/23
--- OUTSIDE RECORDS SUMMARY | 2024-12-17 14:57 | XMS_ITS | Encounter Summary ---
Author Organization [facility] Address [address] [facility] [address] [place] [address] Phone Care Team Providers Care Sfdc Technical Architect Name Role Phone Pawan Chavez LILY Primary Care Provider [phone] [phone] Encounter Details Date Type Department Care Team (Late st Contact Info) Description 02/08/2021 Orders Only [facility] [address] [facility] [address] [place] [address] Provider, MD Jonnie [address] [place] [id number] Social History Tobacco Use Types Packs/Day [...] Visit [facility] [address] [address] Castro Bailey MD [address] [facility] [address] [place] [address] documented as of this encounter Procedures Procedure Name Priority Date/Time Associated Diagnosis Comments EXT RESULT ENTRY Routine 07/30/2020 documented in this encounter Results * EXT RESULT ENTRY (07/30/2020) Historical Provider LAB BLOOD ORDERABLES Christy l Result documented in this encounter Visit Diagnoses Not on filedocumented in this encounter Care Teams Sfdc Technical Architect Relationship Specialty Start Date End Date Pawan Chavez FNP [address] [place] [address] PCP - General Nurse Practitioner 02/01/21 documented as of this encounter
== END 2024-12-17 12:56 | disposition home or self-care (01) ==
LOC: HO.HOSX 12:55
PROVIDERS: Visit Provider Physician Assistant
DX: M50.90 Cervical disc disorder, unspecified, unspecified cervical region (principal); Z98.1 Arthrodesis status
CPT/HCPCS: 72050; 99212

== ENCOUNTER → 2024-12-17 13:05 | Outpatient (BNV) | payer MEDICAID, SELFPAY | PROVIDERS: Visit Provider Radiology Diagnostic Radiology | DX: M50.90 Cervical disc disorder, unspecified, unspecified cervical region (principal); Z98.1 Arthrodesis status | CPT/HCPCS: 72050 ==